=== PATIENT | female | born 1975 | race Caucasian/White ===

== ENCOUNTER 2018-09-30 22:47 | Emergency (ER) | payer MEDICARE, SELFPAY ==
[2018-09-30 22:49] VITALS: BP 133/74; PULSE 81; RESP 18; TEMP 36.6; O2SAT 100; BMI 35.6
--- NOTE | 2018-09-30 23:05 | ED.VISSUMM ---
- ER Visit Summary Date of Service: 09/30/18 Chief Complaint: Left breast pain History of Present Illness: The patient is a 42 F who was sitting and watching wrestling and eating mashed potatoes when she started to experience a sharp stabbing left upper axillary quadrant breast pain. She states she has had similar pains in the past but never this severe. No home treatment. She has had a hysterectomy. She states that she is but later informs me of 3 miscarriages. Moderate caffeine intake. She is a smoker. Physical Examination: Afebrile vital signs stable Gen: Well-nourished well-developed Head: Normocephalic atraumatic Eyes: Perrl EOMI ENT: TMs clear no rhinorrhea moist mucous membranes Neck: Supple no lymphadenopathy no JVD nontender CVS: Regular rate rhythm no murmurs normal S1-S2 Respiratory: No distress clear to auscultation bilaterally chest nontender Left Breast: The nipple appears normal. There are no rashes. The left axillary upper quadrant is tender to palpation. I do not appreciate any masses. No axillary lymph nodes felt. Abdomen: Soft nontender nondistended normal bowel sounds no masses Back: Nontender Extremity: Nontender no edema Skin: Normal color no rash Neuro: alert orientated ?3 CN II-XII intact normal strength sensation reflexes gait cerebellar Psych: Normal affect normal mood Emergency Department Course and Treatment: I recommend to the patient that she use heat and anti-inflammatories. I have advised her to follow-up with her doctor (FARM CONSULTANT) later this week. Impression: Left breast pain This note was generated with [employer] dictation software. It may contain incorrect words, spelling, and punctuation that were not noted in review of the chart prior to signing ED Disposition - Plan for ED Patient: Disposition: Home or Assisted Living Chief Complaint: Other, Pain/Inj Diagnosis: Pain of left breast Additional Instructions: I would recommend applying heat to the breast. Gentle massage Ibuprofen 800 mg 3 times a day. Please call your FARM CONSULTANT in the morning to arrange follow-up for later this week.
--- NOTE | 2018-09-30 23:10 | ED.DCSUM_ITS ---
- ER Visit Summary Date of Service: 09/30/18 Chief Complaint: Left breast pain History of Present Illness: The patient is a 42 F who was sitting and watching wrestling and eating mashed potatoes when she started to experience a sharp stabbing left upper axillary quadrant breast pain. She states she has had similar pains in the past but never this severe. No home treatment. She has had a hysterectomy. She states that she is but later informs me of 3 miscarriages. Moderate caffeine intake. She is a smoker. Physical Examination: Afebrile vital signs stable Gen: Well-nourished well-developed Head: Normocephalic atraumatic Eyes: Perrl EOMI ENT: TMs clear no rhinorrhea moist mucous membranes Neck: Supple no lymphadenopathy no JVD nontender CVS: Regular rate rhythm no murmurs normal S1-S2 Respiratory: No distress clear to auscultation bilaterally chest nontender Left Breast: The nipple appears normal. There are no rashes. The left axillary upper quadrant is tender to palpation. I do not appreciate any masses. No axillary lymph nodes felt. Abdomen: Soft nontender nondistended normal bowel sounds no masses Back: Nontender Extremity: Nontender no edema Skin: Normal color no rash Neuro: alert orientated ?3 CN II-XII intact normal strength sensation reflexes gait cerebellar Psych: Normal affect normal mood Emergency Department Course and Treatment: I recommend to the patient that she use heat and anti-inflammatories. I have advised her to follow-up with her doctor (SPINNING ROOM WORKER) later this week. Impression: Left breast pain This note was generated with [employer] dictation software. It may contain incorrect words, spelling, and punctuation that were not noted in review of the chart prior to signing ED Disposition - Plan for ED Patient: Disposition: Home or Assisted Living Chief Complaint: Other, Pain/Inj Diagnosis: Pain of left breast Additional Instructions: I would recommend applying heat to the breast. Gentle massage Ibuprofen 800 mg 3 times a day. Please call your SPINNING ROOM WORKER in the morning to arrange follow-up for later this week.
[2018-09-30] MEDS: Ibuprofen 400 MG Tablet 800 MG PO (23:16)
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
== END 2018-09-30 23:22 | disposition home or self-care (01) ==
LOC: ED 23:20
PROVIDERS: Emergency Provider Emergency Medicine; Family Provider Family Medicine; PCP Family Medicine
DX: N64.4 Mastodynia (principal); K21.9 Gastro-esophageal reflux disease without esophagitis; F17.200 Nicotine dependence, unspecified, uncomplicated
CPT/HCPCS: 99283

== ENCOUNTER 2018-11-14 23:57 | Emergency (ER) | payer MEDICARE, SELFPAY ==
[2018-11-14 23:58] VITALS: BP 125/75; PULSE 84; RESP 18; TEMP 36.7; O2SAT 98; BMI 33.9
--- NOTE | 2018-11-15 00:20 | RAD_ITS ---
STUDY: X-RAY CHEST REASON FOR EXAM: Female, 42 years old. Cough TECHNIQUE: PA and lateral views of the chest. COMPARISON: None. FINDINGS: The lungs are clear and expanded. There is no demonstrated pleural abnormality. Normal size heart. Normal mediastinum and yulisa. Normal visualized pulmonary arteries. Normal visualized aortic arch and descending thoracic aorta. Normal visualized thoracic spine. Normal visualized ribs, clavicles, and shoulders. There is no demonstrated abnormality of the visualized soft tissue structures of the upper abdomen. RAD/Chest PA and Lateral IMPRESSION: Normal x-ray examination of the chest. Electronically Signed: Renzo Price MD at 1:10 EST Tel , Service support ,
[2018-11-15 00:27] VITALS: PULSE 89; RESP 18
[2018-11-15] MEDS: Albuterol 2.5 MG/3 ML VIAL.NEB. INHALATION (00:27)
--- NOTE | 2018-11-15 00:28 | ED.VISSUMM ---
- ER Visit Summary Date of Service: 11/15/18 Chief Complaint: Cough and hematemesis History of Present Illness: The patient is a 42 F presenting for evaluation secondary to cough and hematemesis. Patient reports over the course of the last 2 days she has had a significant cough. This is relatively nonproductive and has been associated with some rhinorrhea and nasal congestion. She endorses sore throat from coughing so hard. Patient reports that she developed some nausea and vomiting today. She had 2 episodes, and the second of which just prior to arrival had a very small amount of blood in the bucket. She denies any nosebleeds. She denies that she has been having any sort of hemoptysis. Patient is a past smoker, no longer smokes. She denies any unintended weight loss. Review of systems otherwise negative. Physical Examination: Vital signs are within normal limits, patient is afebrile. General: Patient is well-nourished well-developed and in no acute distress. Head: Normocephalic, atraumatic Eyes: Pupils equal round and reactive bilaterally, extra occular motion intact bialterally ENT: Moist mucous membranes, posterior pharyngeal erythema without evidence of posterior fullness asymmetry or exudates Neck: Supple, no lymphadenopathy, no JVD, no meningismus CVS: Heart regular rate and rhythm, no murmurs, rubs or gallops, radial pulses 2+ bilaterally Resp: Respirations nondistressed, lung sounds mild wheezes bilaterally, frequent coughing Abdomen: Soft, nontender, nondistended, no palpable masses, normal bowel sounds Back: Nontender Extremities: Nontender, atraumatic, active full range of motion, no peripheral edema Skin: warm, no rashes, no petechia Neuro: Alert and oriented x 4, CN 2-12 intact, no lateralizing neurological defecits Psyc: Normal affect Test Results: PA and lateral chest x-ray by my personal interpretation is negative Emergency Department Course and Treatment: Patient presented for evaluation secondary to a cough and a single episode of hematemesis. Patient's hematemesis seems more like either swallowed blood that was vomited versus a Eli-Ferrara tear she describes it is a very small amount of blood and she is nontoxic appearing does not have any crepitus of the chest or any stigmata of upper GI bleed or Boerhaave syndrome. I do not believe that further workup is indicated. Patient was given an albuterol breathing treatment had some improvement. At this point I believe she does have bronchitis. Patient will be treated with an inhaler and a short course of prednisone and follow-up with primary care. Disposition: Discharge Impression: 1. Bronchitis This note was generated with [employer] dictation software. It may contain incorrect words, spelling, and punctuation that were not noted in review of the chart prior to signing ED Disposition - Plan for ED Patient: Disposition: Home or Assisted Living Diagnosis: Bronchitis Instructions: ED Bronchitis Asthmatic Prescriptions: Prednisone [Deltasone] 40 mg PO DAILY #8 tab Referrals: Juan Garcia MD [Primary Care Provider] - 3-5 Days if not improving
--- NOTE | 2018-11-15 00:32 | ED.DCSUM_ITS ---
- ER Visit Summary Date of Service: 11/15/18 Chief Complaint: Cough and hematemesis History of Present Illness: The patient is a 42 F presenting for evaluation secondary to cough and hematemesis. Patient reports over the course of the last 2 days she has had a significant cough. This is relatively nonproductive and has been associated with some rhinorrhea and nasal congestion. She endorses sore throat from coughing so hard. Patient reports that she developed some nausea and vomiting today. She had 2 episodes, and the second of which just prior to arrival had a very small amount of blood in the bucket. She denies any nosebleeds. She denies that she has been having any sort of hemoptysis. Shalonda ent is a past smoker, no longer smokes. She denies any unintended weight loss. Review of systems otherwise negative. Physical Examination: Vital signs are within normal limits, patient is afebrile. General: Patient is well-nourished well-developed and in no acute distress. Head: Normocephalic, atraumatic Eyes: Pupils equal round and reactive bilaterally, extra occular motion intact bialterally ENT: Moist mucous membranes, posterior pharyngeal erythema without evidence of posterior fullness asymmetry or exudates Neck: Supple, no lymphadenopathy, no JVD, no meningismus CVS: Heart regular rate and rhythm, no murmurs, rubs or gallops, radial pulses 2+ bilaterally Resp: Respirations nondistressed, lung sounds mild wheezes bilaterally, frequent coughing Abdomen: Soft, nontender, nondistended, no palpable masses, normal bowel sounds Back: Nontender Extremities: Nontender, atraumatic, active full range of motion, no peripheral edema Skin: warm, no rashes, no petechia Neuro: Alert and oriented x 4, CN 2-12 intact, no lateralizing neurological defecits Psyc: Normal affect Test Results: PA and lateral chest x-ray by my personal interpretation is n egative Emergency Department Course and Treatment: Patient presented for evaluation secondary to a cough and a single episode of hematemesis. Patient's hematemesis seems more like either swallowed blood that was vomited versus a Eli-Ferarra tear she describes it is a very small amount of blood and she is nontoxic appearing does not have any crepitus of the chest or any stigmata of upper GI bleed or Boerhaave syndrome. I do not believe that further workup is indicated. Patient was given an albuterol breathing treatment had some improvement. At th is point I believe she does have bronchitis. Patient will be treated with an inhaler and a short course of prednisone and follow-up with primary care. Disposition: Discharge Impression: 1. Bronchitis This note was generated with [employer] dictation software. It may contain incorrect words, spelling, and punctuation that were not noted in review of the chart prior to signing ED Disposition - Plan for ED Patient: Disposition: Home or Assisted Living Diagnosis: Bronchitis Instructions: ED Bronchitis Asthmatic Prescriptions: Prednisone [Deltasone] 40 mg PO DAILY #8 tab Referrals: Juan Garcia MD [Primary Care Provider] - 3-5 Days if not improving
[2018-11-15] MEDS: predniSONE 20 MG Tablet 40 MG PO (01:04)
[2018-11-15 01:06] VITALS: RESP 16
== END 2018-11-15 01:07 | disposition home or self-care (01) ==
PROVIDERS: Emergency Provider Emergency Medicine; Family Provider Family Medicine; PCP Family Medicine
DX: J40 Bronchitis, not specified as acute or chronic (principal); Z87.891 Personal history of nicotine dependence
CPT/HCPCS: 71046; 94640; 99283

== ENCOUNTER → 2019-01-01 09:03 | Outpatient (CLI) | payer MEDICARE, SELFPAY ==
[2019-01-01 09:43] LABS: Absolute Lymphocyte Count 2.15 X10^3/ul (0.83-4.51); Absolute Neutrophil Count 4.3 X10^3/uL (2.0-7.7); Basophil# 0.08 X10^3/uL; Basophil% 1.1 % (0-1); Eosinophil# 0.25 X10^3/uL; Eosinophils% 3.4 % (0-5); Hematocrit 42.3 % (37-47); Hemoglobin 14.6 g/dl (12.0-15.0); Lymphocyte # 2.15 X10^3/ul (4.0); Mean Corp Hgb Conc 34.5 g/gl (32-36); Mean Corpuscular Hgb 30.1 pg (27.0-32.0); Mean Corpuscular Volume 87.2 fL (81-99); Mean Platelet Vol. 11.1 fl (6.2-12.0); Monocyte# 0.64 X10^3/uL; Monocyte% 8.6 % (0-10); Neutrophil # 4.27 X10^3/uL (2.7-7.7); Neutrophil % 57.6 % (47-70); Platelet Count 208 K/mm3 (150-450); RBC Distribution Width CV 12.5 % (11.6-14.6); RBC Distribution Width SD 38.8 fl (35.1-43.9); Red Blood Count 4.85 M/mm3 (4.2-5.4); White Blood Count 7.4 K/mm3 (4.4-11.0)
[2019-01-01 09:45] LABS: POSITIVE COUNT NO; POSITIVE DIFFERENTIAL NO; POSITIVE MORPHOLOGY NO
[2019-01-01 10:13] LABS: ALB/GLOB Ratio 1.1 RATIO (0.9-2.4); AST(SGOT) 81 U/L (15-37); Alanine Aminotransfer ALT/SGPT 135 U/L (13-56); Alkaline Phosphatase 69 U/L (45-117); Anion Gap 7 (5-15); BUN 13 mg/dL (7-18); BUN/Creat Ratio 15.9 RATIO (10-20); Calcium,Total 8.4 mg/dL (8.5-10.1); Chloride 107 mmol/L (98-107); Cholesterol 145 mg/dL (200); Creatinine, Serum 0.82 mg/dL (0.55-1.02); EST Glomerular Filtration Rate 82 mL/min (>60); Est Glom Filt Rate - Afr Amer 99 mL/min (>60); Globulin 3.6 g/dL (2.2-4.2); Glucose 113 mg/dL (74-106); High Density Lipoprotein 30 mg/dL; Potassium 3.9 mmol/L (3.5-5.1); Protein, Total 7.6 g/dL (6.4-8.2); Sodium Level 139 mmol/L (136-145); T4 Total, Thyroxin 10.8 ug/dL (4.8-13.9); Thyroid Stim Hormone (TSH) 2.04 uIU/mL (0.358-3.74); Triglycerides 173 mg/dL; Very Low Density Lipoprotein 35 mg/dL (5-40)
[2019-01-01 10:55] LABS: T3 Total - Triiodothyronine 1.39 ng/mL (0.6-1.81)
== END ==
PROVIDERS: Family Provider Family Medicine; PCP Family Medicine
DX: F43.10 Post-traumatic stress disorder, unspecified (principal); Z79.899 Other long term (current) drug therapy
CPT/HCPCS: 36415; 80053; 80061; 83036; 84436; 84443; 84480; 85025

== ENCOUNTER 2019-08-30 19:18 | Emergency (ER) | payer MEDICARE, MEDICAID, SELFPAY ==
[2019-08-30 19:19] VITALS: BP 112/65; PULSE 79; RESP 18; TEMP 36.8; O2SAT 97; BMI 32.9
--- NOTE | 2019-08-30 19:38 | ED.VIS.FEGU ---
History of Present Illness Chief Complaint: Vag Bleeding Informant: Patient Pain: Pelvic Pain Onset: Today Context: Gradual Onset Timing: Continuous Quality: Cramping Location: Suprapubic Current Severity: Mild Maximum Severity: Mild Issue: Vaginal bleeding Onset: Hours - 2 Context: Sudden Onset Timing: Intermittent Current Severity: Mild Maximum Severity: Mild Associated Symptoms: Negative for: Dysuria, Frequency, Urgency, Hematuria Narrative: Patient states she had a partial hysterectomy 5 years ago, continues to get Pap smears from her doctor, and started bleeding for the first time in 5 years on her vagina couple hours ago without any obvious reason. She denies any systemic symptoms although she is having very mild pelvic discomfort in the midline. No other discharge other than the mild bleeding. [facility] has not [facility] for the last 5 years. Past Medical History - Allergies and Home Meds Allergies/Adverse Reactions: Allergies Penicillins Allergy (Verified 11/15/18 00:01) Rash bee venom protein (honey bee) Adverse Reaction (Verified 11/15/18 00:01) Anaphylaxis Primary Care Physician: Juan Garcia MD [Primary Care Provider] - Surgical History: hysterectomy Lives: Spouse/ Significant Other Smoking Status: Former smoker Drugs: None Review of Systems General: Denies: Chills, Fever, Malaise, Sweats Cardiovascular: Denies: Chest pain, Palpitations Respiratory: Denies: Dyspnea, Cough, Dyspnea on exertion Gastrointestinal: Reports: Abdominal pain. Denies: Nausea, Vomiting, Diarrhea, Melena, Hematochezia Genitourinary: Reports: - - vaginal bleeding. see HPI.. Denies: Dysuria, Hematuria, Frequency Musculoskeletal: Denies: Neck pain, Back pain, Swelling, Extremity Pain Skin: Denies: Rash, Wounds Neurological: Denies: Headache, Weakness, Numbness Physical Exam Vital Signs/Narrative: Vital Signs Temp Pulse Resp BP Pulse Ox 08/30/19 19:19 98.2 F 79 18 112/65 97 Inital Vital Signs reviewed: Yes General: Well nourished, Well developed, - - Well-appearing, no acute distress. Head: Normocephalic, Atraumatic Abdomen: Soft, Nontender, Nondistended, Normal bowel sounds : Speculum exam: Normal external genitalia, No vaginal lesions, No vaginal discharge, Normal cervix, Old blood - emanating from cervical os; no active bleeding after swabbed old blood away, - - No foreign bodies. No evidence for a vaginal laceration. No bright red blood; all of the old blood is very dark, almost brown in appearance, and fairly homogenous. There is a fairly small amount of old blood. Bimanual exam: No cervical motion tenderness, Os closed Back: Nontender. Negative for: CVA tenderness Skin: Normal color, No rash, No Trauma Neurological: Alert, Oriented x3, Cranial nerves II-XII grossly intact, Normal Strength, Normal Sensation, Normal Gait Psychological: Normal affect, Normal Mood Diagnostic/Tx/Re-eval - Medical Decision/Diagnostic Studies Discussed with Dr. Carmita Glover. She agrees with patient following up as an outpatient, and based on my exam agrees that the patient does not need an emergent ultrasound at this time but it is certainly possible that the patient had a supracervical partial hysterectomy, in which case the cervix would be left behind but she should not be bleeding. An outpatient ultrasound would be reasonable and she can follow-up in 2 days in the office, the patient was advised of this and call. ED Disposition - Plan for ED Patient: Disposition: Home or Assisted Living Diagnosis: Abnormal vaginal bleeding Instructions: Dysfunctional Uterine Bleeding Referrals: Juan Garcia MD [Primary Care Provider] - Ruiz Glover [STAFF PHYSICIAN] - (or any of the [facility] -- call sunday AM for appt) Additional Instructions: If your bleeding becomes very heavy, more than 1 pad per hour for multiple hours, or you feel like you are going to pass out a very weak, return to the ER.
[2019-08-30 19:58] VITALS: RESP 18
== END 2019-08-30 20:09 | disposition home or self-care (01) ==
PROVIDERS: Emergency Provider Emergency Medicine; Family Provider Family Medicine; PCP Family Medicine
DX: N93.9 Abnormal uterine and vaginal bleeding, unspecified (principal); Z90.710 Acquired absence of both cervix and uterus; Z87.891 Personal history of nicotine dependence
CPT/HCPCS: 99282

== ENCOUNTER 2020-11-13 18:34 | Emergency (ER) | payer OTHER, MEDICARE, MEDICAID, SELFPAY ==
[2020-11-13 18:34] VITALS: BP 147/86; PULSE 91; RESP 18; TEMP 36.5; O2SAT 99; BMI 36.7
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
[2020-11-13 19:16] LABS: Bacteria 0 SEEN /hpf (None Seen); Mucous, Urine 0 SEEN /hpf (<or=2+)
[2020-11-13 19:21] VITALS: PULSE 79; RESP 18; O2SAT 100
[2020-11-13] MEDS: Ondansetron 4 MG/2 ML Vial IV (19:22)
[2020-11-13] MEDS: fentaNYL 100 MCG/2 ML Ampul 50 MCG IV (19:23)
[2020-11-13 19:57] LABS: Absolute Lymphocyte Count 1.55 X10^3/uL (0.83-4.51); Absolute Neutrophil Count 4.6 X10^3/uL (2.0-7.7); Basophil# 0.05 X10^3/uL; Basophil% 0.7 % (0-1); Eosinophils% 1.5 % (0-5); Hematocrit 43.4 % (37-47); Hemoglobin 14.7 g/dL (12.0-15.0); Lymphocyte # 1.55 X10^3/ul (4.0); Lymphocyte % 22.7 % (19-41); Mean Corp Hgb Conc 33.9 g/dL (32-36); Mean Corpuscular Hgb 30.6 pg (27.0-32.0); Mean Corpuscular Volume 90.2 fL (81-99); Mean Platelet Vol. 11.1 fl (6.2-12.0); Monocyte# 0.47 X10^3/uL; Monocyte% 6.9 % (0-10); NRBC Flagged by Analyzer 0 % (0-5); Neutrophil # 4.62 X10^3/uL (2.7-7.7); Neutrophil % 67.6 % (47-70); Platelet Count 235 K/mm3 (150-450); RBC Distribution Width CV 11.8 % (11.6-14.6); RBC Distribution Width SD 38.7 fl (35.1-43.9); Red Blood Count 4.81 M/mm3 (4.2-5.4); White Blood Count 6.8 K/mm3 (4.4-11.0)
[2020-11-13 19:59] LABS: Color, Urine Yellow (Yellow); Glucose, Dipstick Normal (Normal); Ketone-Dipstick Negative (Negative); Leukocyte Esterase-Dipstick 25 /ul (Negative); Nitrite-Dipstick Negative (Negative); Occult Blood-Urine 150 /ul (Negative); Protein-Dipstick 30 mg/dl (Negative); Specific Gravity, Urine 1.025 (1.002-1.030); Urine Bilirubin Dipstick Negative (Negative); Urine Clarity Sl. Cloudy (Clear); Urine Urobilinogen 1 mg/dl (Normal)
[2020-11-13 20:01] LABS: Prothrombin Time (Protime)PT. 12.8 SECONDS (11.7-14.9)
[2020-11-13 20:12] LABS: Alcohol, Blood (Medical)-Serum < 3.0 mg/dL; Anion Gap 6 (5-15); BUN 16 mg/dL (7-18); BUN/Creat Ratio 16.3 RATIO (10-20); Calcium,Total 9.3 mg/dL (8.5-10.1); Chloride 105 mmol/L (98-107); Creatinine, Serum 0.98 mg/dL (0.55-1.02); EST Glomerular Filtration Rate 66 mL/min (>60); Est Glom Filt Rate - Afr Amer 79 mL/min (>60); Estimated Creatinine Clearance 53.72 ml/min; Glucose 109 mg/dL (74-106); Sodium Level 138 mmol/L (136-145)
[2020-11-13 20:22] LABS: Hyaline Cast 0-5 SEEN /lpf (0-5); Red Blood Cells-Urine 10-25 SEEN /hpf (0-5); Squamous Epithelial Cells - UA 0-5 SEEN /hpf (5-10); White Blood Cells 0-5 SEEN /hpf (0-5)
[2020-11-13 20:23] LABS: Amorphous Sediment 1+ URATE
[2020-11-13 21:39] VITALS: PULSE 84; RESP 16; O2SAT 97
== END 2020-11-13 21:39 | disposition home or self-care (01) ==
PROVIDERS: Emergency Provider Student in an Organized Health Care Education/Training Program
DX: S20.219A Contusion of unspecified front wall of thorax, initial encounter (principal); S32.019A Unspecified fracture of first lumbar vertebra, initial encounter for closed fracture; S32.029A Unspecified fracture of second lumbar vertebra, initial encounter for closed fracture; J45.909 Unspecified asthma, uncomplicated; K21.9 Gastro-esophageal reflux disease without esophagitis; Z87.891 Personal history of nicotine dependence; Z90.710 Acquired absence of both cervix and uterus; V89.2XXA Person injured in unspecified motor-vehicle accident, traffic, initial encounter
CPT/HCPCS: 70450; 71260; 74177; 80048; 81001; 82077; 85025; 85610; 93005; 96374; 96375; 99285; Q9967; A4216; J2405

== ENCOUNTER 2020-12-08 23:12 | Emergency (ER) | payer MEDICARE, MEDICAID, SELFPAY ==
[2020-12-08 23:12] VITALS: BP 151/86; PULSE 79; RESP 16; TEMP 36.2; O2SAT 97; BMI 37.0
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
[2020-12-08 23:31] VITALS: BP 151/86; PULSE 79; RESP 16; TEMP 36.2; O2SAT 97
[2020-12-08] MEDS: HYDROcodone Bitartrate/Apap 5/325 Tablet PO (23:39)
[2020-12-08 23:51] LABS: Bacteria 0 SEEN /hpf (None Seen); Mucous, Urine 0 SEEN /hpf (<or=2+); White Blood Cells 0 SEEN /hpf (0-5)
[2020-12-08 23:52] LABS: Color, Urine Yellow (Yellow); Glucose, Dipstick Normal (Normal); Ketone-Dipstick 5 mg/dl (Negative); Leukocyte Esterase-Dipstick Negative /ul (Negative); Nitrite-Dipstick Negative (Negative); Occult Blood-Urine 10 /ul (Negative); Protein-Dipstick Negative (Negative); Urine Bilirubin Dipstick Negative (Negative); Urine Clarity Clear (Clear); Urine Urobilinogen 4 mg/dl (Normal)
[2020-12-08 23:58] LABS: Red Blood Cells-Urine 0-5 SEEN /hpf (0-5); Squamous Epithelial Cells - UA 5-10 SEEN /hpf (5-10)
== END 2020-12-09 00:18 | disposition home or self-care (01) ==
LOC: ED 12-09 00:12
PROVIDERS: Emergency Provider Emergency Medicine
DX: M54.16 Radiculopathy, lumbar region (principal); Z90.710 Acquired absence of both cervix and uterus; Z87.891 Personal history of nicotine dependence
CPT/HCPCS: 81001; 99283

== ENCOUNTER 2021-05-01 11:25 | Emergency (ER) | payer MEDICARE, MEDICAID, SELFPAY ==
[2021-05-01 11:26] VITALS: BP 140/81; PULSE 76; RESP 18; TEMP 35.7; O2SAT 99; BMI 37.2
--- NOTE | 2021-05-01 12:22 | EKG12_ITS ---
Test Reason : CP Blood Pressure : / mmHG Vent. Rate : 071 BPM Atrial Rate : 071 BPM P-R Int : 144 ms QRS Dur : 086 ms QT Int : 402 ms P-R-T Axes : 000 149 127 degrees QTc Int : 436 ms Suspect arm lead reversal, interpretation assumes no reversal Normal sinus rhythm Lateral infarct , age undetermined Abnormal ECG Confirmed by SUDEEP MCCONNELL, MARIA LUISA ([id number]), commissioning editor RICARDO LISA ([id number]) on 05/02/2021 11:48:23 AM Referred By: GALDINO/CHERYL Confirmed By:MARIA LUISA SHEETS MD
--- NOTE | 2021-05-01 12:23 | RAD_ITS ---
HISTORY: chest pain. TECHNIQUE: XR Chest 2 Views. # of images incl. paperwork: 2. COMPARISON: 11/15/2018. FINDINGS: CARDIOMEDIASTINAL STRUCTURES: Cardiac silhouette not enlarged. Mediastinal contour unremarkable. LUNGS: Radiographically clear. Low lung volumes. PLEURA: No pleural effusion or pneumothorax. OSSEOUS STRUCTURES: Unremarkable. RAD/Chest PA and Lateral IMPRESSION: No radiographic evidence of acute cardiopulmonary disease. at 1313 Reported and signed by: Hodan Gates MD Electronically Signed: Hodan Gates MD at 13:12 EDT Tel , Service support ,
[2021-05-01] MEDS: Aspirin 81 MG TAB.CHEW 324 MG PO (12:28)
[2021-05-01 12:33] VITALS: PULSE 65; RESP 18; O2SAT 96
--- NOTE | 2021-05-01 12:36 | EDS_ITS ---
HPI History of Present Illness Chief Complaint: Chest Pain Informant: patient Narrative Narrative: Patient is a 45-year-old female with history of asthma, seasonal allergies and acid reflux presenting with chest pain. She states it is on her left chest. She had an episode yesterday afternoon after she had cotton candy flavored soda. She states it felt like she was coming down from a sugar high. She describes it as a discomfort associated with her heart racing. Her symptoms were better this morning however when she was at [employer] they returned around 11 AM. Is been going on since. Patient states she has similar episode in the past and actually had a stress test 2 or 3 weeks ago by her cable supervisor in [place] which she says was normal. She is scheduled to have an echocardiogram tomorrow morning. She states this feels like her prior episodes. She notes her symptoms are worse when she exerts herself. She denies any cough, fever or chills. No GI or symptoms. No other complaints at this time. [facility] Medical History (Updated 05/01/21 @ 17:[address] Anna Valdivia, ) Asthma delivery delivered Home Medications omeprazole 40 mg PO DAILY 06/04/17 [History Last Taken Unknown] albuterol sulfate [Ventolin Hfa (SP)] 1 - 2 puff INHALATION Q4H PRN PRN 09/13/17 [History Last Taken Unknown] epinephrine 0.3 mg SUBCUT X1 PRN 09/30/18 [History Last Taken Unknown] Allergy/AdvReac Type Severity Reaction Status Date / Time Penicillins Allergy Rash Verified 05/01/21 11:28 bee venom protein (honey bee) AdvReac Anaphylaxis Verified 05/01/21 11:28 Social History Smoking Status: Former smoker ROS ROS ED Constitutional Constitutional ED: Denies fatigue or weakness Eyes Eyes: Denies blurry vision Cardiovascular Cardiovascular: Reports chest pain and palpitations Respiratory/Chest Respiratory/Chest: Denies cough Gastrointestinal Gastrointestinal: Denies abdominal pain, nausea or vomiting Genitourinary Genitourinary ED: Denies decreased urination or dysuria Musculoskeletal Musculoskeletal: Denies extremity pain Integumentary Denies new lesions or rash Neurologic Neurologic: Denies paresthesias or weakness Psychiatric Psychiatric: Denies anxiety or depression Hematologic/Lymphatic Hematologic/Lymphatic: Denies easy bleeding or easy bruising EXAM Physical Exam Const Vital Signs: 05/01/21 11:26 05/01/21 12:29 05/01/21 12:33 Temperature 96.3 F L Temperature Source Temporal Pulse Rate 76 65 Respiratory Rate 18 18 Blood Pressure 140/81 H Blood Pressure Mean 100 Pulse Ox 99 96 Oxygen Delivery Method Room Air Room Air Room Air 05/01/21 14:24 05/01/21 15:00 05/01/21 17:16 Temperature Temperature Source Pulse Rate 62 60 81 Respiratory Rate 20 H 15 16 Blood Pressure 120/74 120/74 Blood Pressure Mean 89 89 Pulse Ox 99 99 99 Oxygen Delivery Method Room Air Room Air Positive well nourished and well developed General Appearance ED: well developed HEENT Reports moist mucous membranes normocephalic Mouth ED: Yes moist mucous membranes normal Eyes PERRL and EOMs intact bilaterally General Eye ED: Yes normal appearance of both eyes Pupil: PERRL Neck supple and no JVD Lymph Lymphatic: no lymphadenopathy noted Chest Wall inspection of chest normal and palpation of chest normal Resp normal respiratory effort, normal air movement and clear to auscultation bilaterally Effort and Inspection: Negative for respiratory distress Cardio regular rate and regular rhythm Peripheral Pulses: pulses 2+ throughout GI non-tender and non-distended Back/Spine no CVA tenderness and normal to inspection Extremity normal to inspection and full ROM Neuro oriented x3, moves all extremities and no focal motor deficits Sensorium / Orientation: awake Psych mental status grossly normal and thought process normal Skin no rashes or lesions noted and no petechiae Heart Score History: Slightly/Non-Suspicious ECG: Nonspecific Repolarization Age: </= 45 years Risk Factors: 1 or 2 Risk Factors Troponin: </= Normal Limit Score: 2 MDM MDM MDM Narrative Medical decision making narrative: Patient evaluated for chest pain. She has been having this ongoing chest pain for some time and it came back today. Patient actually recently had a stress test for this which she states was normal and is scheduled have an echocardiogram tomorrow. She is hemodynamically stable. EKG does not show any acute changes. High-sensitivity troponin x2 is normal. Patient is PE RC negative I do not suspect PE at this time. She does not appear to be fluid overloaded. Exact cause her pain is not clear however she does not have any arrhythmia in the ER and I think she stable for outpatient follow-up. Lab Data Attestation: I reviewed the patient's lab results. Labs: Laboratory Results - last 24 hr 05/01/21 05/01/21 05/01/21 11:40 11:40 11:40 WBC 6.7 RBC 4.75 Hgb 14.1 Hct 40.5 MCV 85.3 MCH 29.7 MCHC 34.8 RDW Std Deviation 38.2 RDW Coeff of Dontae 12.3 Plt Count 212 MPV 11.3 Immature Gran % (Auto) 0.300 Neut % (Auto) 59.7 Lymph % (Auto) 29.2 [place] % (Auto) 7.1 Eos % (Auto) 2.9 Baso % (Auto) 0.8 Absolute Neuts (auto) 4.0 Absolute Lymphs (auto) 1.94 Nucleated RBC % 0 Sodium 140 Potassium 3.3 L Chloride 106 Carbon Dioxide 27.0 Anion Gap 7 BUN 13 Creatinine 0.84 Estim Creat Clear Calc 62.03 Est GFR (MDRD) Af Amer 95 Est GFR (MDRD) Non-Af 78 BUN/Creatinine Ratio 15.5 Glucose 112 H Calcium 9.4 Troponin I High Sens < 3.0 L B-Natriuretic Peptide 14.0 TSH 2.47 05/01/21 14:25 WBC RBC Hgb Hct MCV MCH MCHC RDW Std Deviation RDW Coeff of Dontae Plt Count MPV Immature Gran % (Auto) Neut % (Auto) Lymph % (Auto) [place] % (Auto) Eos % (Auto) Baso % (Auto) Absolute Neuts (auto) Absolute Lymphs (auto) Nucleated RBC % Sodium Potassium Chloride Carbon Dioxide Anion Gap BUN Creatinine Estim Creat Clear Calc Est GFR (MDRD) Af Amer Est GFR (MDRD) Non-Af BUN/Creatinine Ratio Glucose Calcium Troponin I High Sens 3.1 B-Natriuretic Peptide TSH Radiography Chest X-Ray - ED: 1 View, Read by ED Physician, Read by Radiologist and No Acute Disease Diagnostic Testing: Radiology Impression Chest X-Ray 05/01/21 12:23 IMPRESSION: No radiographic evidence of acute cardiopulmonary disease. at 1313 Reported and signed by: Hodan Gates MD Electronically Signed: Hodan Gates MD at 13:12 EDT Tel , Service support , Rhythm Strip Rhythm Strip: Sinus Rhythm Rate: 71 Ectopy: None EKG Initial EKG: Attestation: I personally reviewed and interpreted this EKG as follows: Interpretation: Sinus Rhythm Comments: Normal sinus rhythm rate of 71 Normal axis Normal intervals Normal ST segments T wave inversions in 1 and aVL with limb lead reversal No significant change compared to prior EKG on 11/13/2020 however patient does have a new T wave inversion lead I Discharge Plan Triage Chief Complaint: Chest Pain ED Provider: Anna Valdivia Dx/Rx/DC Orders Clinical Impression: Chest pain of unknown etiology Instructions: ED Chest Pain, Uncertain Cause Prescriptions: No Action omeprazole 40 MG capsule,delayed release(DR/EC) 40 mg PO DAILY RF: 0 albuterol sulfate [Ventolin HFA] 1 INHALER inhaler 1 - 2 puff inhalation Q4H PRN PRN (Reason: Asthma) RF: 0 epinephrine 0.3 MG syringe 0.3 mg subcut X1 PRN (Reason: allergy) RF: 0 Primary Care Provider: [facility] ,Out of Referrals: [facility] Doctor,Out of [Primary Care Provider] - Disposition Disposition: Home, Self Care Discharge Date/Time: 05/01/21 17:17
[2021-05-01 12:48] LABS: Absolute Lymphocyte Count 1.94 X10^3/uL (0.83-4.51); Basophil# 0.05 X10^3/uL; Basophil% 0.8 % (0-1); Eosinophil# 0.19 X10^3/uL; Eosinophils% 2.9 % (0-5); Hematocrit 40.5 % (37-47); Hemoglobin 14.1 g/dL (12.0-15.0); Lymphocyte # 1.94 X10^3/ul (0.83-4.51); Lymphocyte % 29.2 % (19-41); Mean Corp Hgb Conc 34.8 g/dL (32-36); Mean Corpuscular Hgb 29.7 pg (27.0-32.0); Mean Corpuscular Volume 85.3 fL (81-99); Mean Platelet Vol. 11.3 fl (6.2-12.0); Monocyte# 0.47 X10^3/uL; Monocyte% 7.1 % (0-10); NRBC Flagged by Analyzer 0 % (0-5); Neutrophil # 3.98 X10^3/uL (2.7-7.7); Neutrophil % 59.7 % (47-70); Platelet Count 212 K/mm3 (150-450); RBC Distribution Width CV 12.3 % (11.6-14.6); RBC Distribution Width SD 38.2 fl (35.1-43.9); Red Blood Count 4.75 M/mm3 (4.2-5.4); White Blood Count 6.7 K/mm3 (4.4-11.0)
[2021-05-01 12:49] LABS: Anion Gap 7 (5-15); BUN 13 mg/dL (7-18); BUN/Creat Ratio 15.5 RATIO (10-20); Calcium,Total 9.4 mg/dL (8.5-10.1); Chloride 106 mmol/L (98-107); Creatinine, Serum 0.84 mg/dL (0.55-1.02); EST Glomerular Filtration Rate 78 mL/min (>60); Est Glom Filt Rate - Afr Amer 95 mL/min (>60); Estimated Creatinine Clearance 62.03 ml/min; Glucose 112 mg/dL (74-106); Potassium 3.3 mmol/L (3.5-5.1); Sodium Level 140 mmol/L (136-145); Thyroid Stim Hormone (TSH) 2.47 uIU/mL (0.358-3.74); Troponin-I HS < 3.0 pg/mL (3.0-53.7)
[2021-05-01 14:24] VITALS: BP 120/74; PULSE 62; RESP 20; O2SAT 99
[2021-05-01 14:50] LABS: Troponin-I HS 3.1 pg/mL (3.0-53.7)
[2021-05-01 15:00] VITALS: BP 120/74; PULSE 60; RESP 15; O2SAT 99
[2021-05-01 17:16] VITALS: PULSE 81; RESP 16; O2SAT 99
== END 2021-05-01 17:17 | disposition home or self-care (01) ==
PROVIDERS: Emergency Provider Emergency Medicine
DX: R07.9 Chest pain, unspecified (principal); J45.909 Unspecified asthma, uncomplicated; K21.9 Gastro-esophageal reflux disease without esophagitis; Z87.891 Personal history of nicotine dependence; Z79.899 Other long term (current) drug therapy
CPT/HCPCS: 71046; 80048; 83880; 84443; 84484; 85025; 93005; 99284

== ENCOUNTER 2021-11-02 16:17 | Outpatient (CLI) | payer MEDICARE, MEDICAID, SELFPAY ==
--- NOTE | 2021-11-02 16:24 | MRI_ITS ---
STUDY: MRI BRAIN WITH AND WITHOUT CONTRAST (ATTENTION INTERNAL AUDITORY CANALS - I.A.C.''s) REASON FOR EXAM: Female, 45 years old. HEARING LOSS- BILATERAL, rt ear pressure TECHNIQUE: Standardized multiplanar fat and water weighted pulse sequences were obtained. IV 17ml Dotarem was administered for the contrast portion of the examination. COMPARISON: 03/07/2017 FINDINGS: Normal bilateral temporal bones. Normal bilateral internal auditory canals. There is no demonstrated intracanalicular or cisternal vestibular schwannoma (acoustic neuroma). There is no enhancement of the bilateral VIIth or VIIIth cranial nerves. Normal bilateral cochlea, vestibules and semicircular canals. Normal size of the ventricles and extra-axial spaces for the patient''s age. Normal white matter tracts of the supratentorial brain. Normal bilateral basal ganglia. Normal thalami. Normal flow voids within the major intracranial circulation suggesting patency by spin echo criteria. Normal venous enhancement. There is no enhancing intra-axial or extra-axial abnormality. There is no extra-axial fluid accumulation. Normal sella turcica, pituitary gland, infundibular stalk, optic chiasm and hypothalamus. Normal tectal plate and pineal gland. Normal midbrain, sari and medulla. Normal cerebellum. Normal basal cisterns. MRI/Brain W/WO Contrast IMPRESSION: There is no demonstrated vestibular schwannoma (acoustic neuroma). Electronically Signed: Mae Maza MD at 15:59 EST Tel , Service support ,
== END 2021-11-02 23:59 | disposition short-term general hospital (02) ==
LOC: MRI 16:19
PROVIDERS: Visit Provider Otolaryngology Otolaryngology/Facial Plastic Surgery
DX: H90.3 Sensorineural hearing loss, bilateral (principal)
CPT/HCPCS: 70553; A9575

== ENCOUNTER 2022-01-22 15:06 | Emergency (ER) | payer MEDICARE, MEDICAID, SELFPAY ==
[2022-01-22 15:07] VITALS: BP 129/79; PULSE 65; RESP 16; TEMP 36.1; O2SAT 99; BMI 38.2
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
[2022-01-22] MEDS: Ondansetron 4 MG/2 ML Vial IV (15:40)
[2022-01-22] MEDS: Morphine 4 MG/ML Syringe IV (15:40)
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
[2022-01-22 16:27] VITALS: BP 115/79; PULSE 71; RESP 15; O2SAT 98
[2022-01-22 18:37] VITALS: PULSE 72; RESP 15; O2SAT 98
== END 2022-01-22 18:39 | disposition home or self-care (01) ==
PROVIDERS: Emergency Provider Emergency Medicine; PCP Family Medicine; Visit Provider Emergency Medicine
DX: S39.012A Strain of muscle, fascia and tendon of lower back, initial encounter (principal); J45.909 Unspecified asthma, uncomplicated; Z87.891 Personal history of nicotine dependence; Z79.82 Long term (current) use of aspirin; Z79.899 Other long term (current) drug therapy; V89.0XXA Person injured in unspecified motor-vehicle accident, nontraffic, initial encounter
CPT/HCPCS: 72100; 74177; 96374; 96375; 99282; Q9967; A4216; J2405

== ENCOUNTER 2022-06-18 14:45 | Emergency (ER) | payer MEDICARE, MEDICAID, SELFPAY ==
[2022-06-18 14:46] VITALS: BP 118/77; PULSE 84; RESP 18; TEMP 36.4; O2SAT 97; BMI 37.2
--- NOTE | 2022-06-18 15:17 | EKG12_ITS ---
Test Reason : CHEST PAIN Blood Pressure : / mmHG Vent. Rate : 079 BPM Atrial Rate : 079 BPM P-R Int : 160 ms QRS Dur : 078 ms QT Int : 388 ms P-R-T Axes : 057 033 046 degrees QTc Int : 444 ms Normal sinus rhythm Possible Inferior infarct , age undetermined Cannot rule out Anterior infarct , age undetermined Abnormal ECG Confirmed by MARIO MCCONNELL, SUSSY ([id number]), commissioning editor RICARDO LISA ([id number]) on 06/20/2022 9:21:47 AM Referred By: DC Confirmed By:KRISTIE MARTIN MD
--- NOTE | 2022-06-18 15:18 | ED.VIS.CHEST ---
HPI History of Present Illness Chief Complaint: Chest Pain Informant: patient Onset/Context/Timing Onset: Today Activity at onset: light activity Timing: Continuous Quality: Positive for Pressure Location: Substernal Current Severity: Mild Maximum Severity: Mild Narrative Narrative: Patient present secondary to chest pain. She states about an hour prior to arrival she was organizing her jewelry when she noted a pressure sensation in her substernal area that radiates to her left shoulder. She reports mild shortness of breath. She does have a history of asthma and has recently been on 2 courses of antibiotics as well as a course of prednisone. She denies having fever or chills. Minimal cough. She was tested for COVID recently at her doctor's office. [facility] Medical History Asthma delivery delivered Home Medications omeprazole 40 mg capsule,delayed release 40 mg PO DAILY 06/04/17 [History Last Taken Unknown] albuterol sulfate 90 mcg/actuation aerosol inhaler (Ventolin HFA) 1 - 2 puff inhalation Q4H PRN PRN Asthma 09/13/17 [History Last Taken Unknown] epinephrine 0.3 mg/0.3 mL injection, auto-injector 0.3 mg subcut X1 PRN allergy 09/30/18 [History Last Taken Unknown] aspirin 81 mg tablet,delayed release 81 mg PO DAILY 01/22/22 [History Last Taken Unknown] cetirizine 5 mg tablet 5 mg PO DAILY 01/22/22 [History Last Taken Unknown] metoprolol succinate 25 mg tablet,extended release 24 hr 25 mg PO QHS 01/22/22 [History Last Taken Unknown] clindamycin HCl 300 mg capsule 300 mg PO TID 06/18/22 [History Last Taken Unknown] doxycycline hyclate 100 mg tablet 100 mg PO BID 06/18/22 [History Last Taken Unknown] potassium chloride 20 mEq tablet,extended release 20 meq PO BID #8 tabs 06/18/22 [Rx Last Taken Unknown] Allergy/AdvReac Type Severity Reaction Status Date / Time Penicillins Allergy Rash Verified 06/18/22 14:48 bee venom protein (honey bee) AdvReac Anaphylaxis Verified 06/18/22 14:48 Social History Smoking Status: Former smoker ROS ROS ED Constitutional Constitutional ED: Denies chills or fever(s) Eyes Eyes: Denies change in vision or discharge from eye(s) ENT ENT ED: Denies discharge from eye(s), rhinorrhea or sore throat Cardiovascular Cardiovascular: Reports chest pain; Denies palpitations or racing heartbeat Respiratory/Chest Respiratory/Chest: Reports cough and dyspnea Gastrointestinal Gastrointestinal: Denies abdominal pain, diarrhea, nausea or vomiting Genitourinary Genitourinary ED: Denies dysuria Musculoskeletal Musculoskeletal: Denies back pain or extremity pain Integumentary Denies Abrasions or rash Neurologic Neurologic: Denies headache(s) or weakness Allergic/Immunologic Allergic/Immunologic ED: Denies lip swelling or urticaria EXAM Physical Exam Const Vital Signs: 06/18/22 14:46 06/18/22 14:52 06/18/22 15:31 Temperature 97.6 F L Temperature Source Temporal Pulse Rate 84 Respiratory Rate 18 Respiratory Effort Short of Breath Blood Pressure 118/77 Blood Pressure Mean 90 Pulse Ox 97 96 Oxygen Delivery Method Room Air Room Air 06/18/22 16:15 06/18/22 17:02 Temperature Temperature Source Pulse Rate 69 65 Respiratory Rate 16 20 H Respiratory Effort Blood Pressure 113/81 H 107/75 Blood Pressure Mean 91 85 Pulse Ox 96 96 Oxygen Delivery Method Room Air Room Air Positive well nourished and well developed General Appearance ED: well developed HEENT Reports normocephalic and head/scalp atraumatic Eyes PERRL and EOMs intact bilaterally Neck supple Chest Wall inspection of chest normal Chest Narrative: Mild anterior chest wall tenderness with palpation. No crepitus. Resp normal respiratory effort and clear to auscultation bilaterally Cardio regular rate and regular rhythm GI normal to inspection, nondistended, normoactive bowel sounds Palpation: soft Extremity normal to inspection Neuro oriented x3 and no sensory deficits noted Sensorium / Orientation: alert Motor Exam: strength 5/5 throughout Psych mental status grossly normal Skin no rashes or lesions noted Heart Score History: Slightly/Non-Suspicious ECG: Normal Age: </= 45 years Risk Factors: No Risk Factors Troponin: </= Normal Limit Score: 0 MDM MDM MDM Narrative Medical decision making narrative: Patient was given Toradol for pain. Lab work, EKG, chest x-ray obtained. Lab Data Attestation: I reviewed the patient's lab results. Labs: Laboratory Results - last 24 hr 06/18/22 06/18/22 06/18/22 15:00 15:00 15:00 WBC 7.5 RBC 4.74 Hgb 14.1 Hct 40.8 MCV 86.1 MCH 29.7 MCHC 34.6 RDW Std Deviation 39.1 RDW Coeff of Dontae 12.4 Plt Count 183 MPV 11.5 Immature Gran % (Auto) 0.500 Neut % (Auto) 67.6 Lymph % (Auto) 22.5 [place] % (Auto) 6.4 Eos % (Auto) 2.5 Baso % (Auto) 0.5 Absolute Neuts (auto) 5.1 Absolute Lymphs (auto) 1.69 Nucleated RBC % 0 D-Dimer Quant (PE/DVT) < 0.27 L Sodium 140 Potassium 2.8 L Chloride 104 Carbon Dioxide 28.0 Anion Gap 8 BUN 10 Creatinine 0.89 Estim Creat Clear Calc 57.94 Est GFR (MDRD) Af Amer 88 Est GFR (MDRD) Non-Af 73 BUN/Creatinine Ratio 11.2 Glucose 200 H Calcium 8.5 Troponin I High Sens 4 Serum , Qual 06/18/22 06/18/22 15:00 17:15 WBC RBC Hgb Hct MCV MCH MCHC RDW Std Deviation RDW Coeff of Dontae Plt Count MPV Immature Gran % (Auto) Neut % (Auto) Lymph % (Auto) Freeborn % (Auto) Eos % (Auto) Baso % (Auto) Absolute Neuts (auto) Absolute Lymphs (auto) Nucleated RBC % D-Dimer Quant (PE/DVT) Sodium Potassium Chloride Carbon Dioxide Anion Gap BUN Creatinine Estim Creat Clear Calc Est GFR (MDRD) Af Amer Est GFR (MDRD) Non-Af BUN/Creatinine Ratio Glucose Calcium Troponin I High Sens < 3 L Serum , Qual NEGATIVE Radiography Chest X-Ray - ED: 1 View, Read by ED Physician, Normal, Heart, Lungs and Mediastinum Diagnostic Testing: Clinical Impression(s) from Imaging Studies Chest X-Ray 06/18/22 16:04 IMPRESSION: No acute cardiopulmonary process. Electronically Signed: Alcides Pizano MD at 16:39 EDT , EKG Initial EKG: Attestation: I personally reviewed and interpreted this EKG as follows: Interpretation: Sinus Rhythm (Sinus at [address] change.) Treatment and Re-Evaluation Narrative: PulmEKG reveals no acute ischemia. Chest x-ray per my interpretation is normal. CBC and chemistry studies significant for potassium low at 2.8. 4. D-dimer is negative and test negative. 2-hour repeat troponin is less than 3. Patient has been given oral potassium replacement here and will be given prescription for 4 additional days at home. Return instructions provided. Discharge Plan Triage Chief Complaint: Chest Pain ED Provider: Edie Bruce Dx/Rx/DC Orders Clinical Impression: Chest pain, Hypokalemia Instructions: ED Chest Pain, Uncertain Cause, ED Hypokalemia Prescriptions: New potassium chloride 20 mEq tablet extended release 20 meq PO BID Qty: 8 0RF No Action omeprazole 40 MG capsule,delayed release(DR/EC) 40 mg PO DAILY Label Comments: take 1 capsule by mouth once daily albuterol sulfate [Ventolin HFA] 1 INHALER inhaler 1 - 2 puff inhalation Q4H PRN PRN (Reason: Asthma) epinephrine 0.3 MG syringe 0.3 mg subcut X1 PRN (Reason: allergy) cetirizine 5 mg tablet 5 mg PO DAILY Label Comments: take 1 tablet by mouth once daily aspirin 81 mg tablet,delayed release (DR/EC) 81 mg PO DAILY Label Comments: take 1 tablet by mouth every morning metoprolol succinate 25 mg tablet extended release 24 hr 25 mg PO QHS Label Comments: take 1 tablet by mouth at bedtime clindamycin HCl 300 mg capsule 300 mg PO TID Label Comments: take 1 capsule by mouth three times a day for 10 days doxycycline hyclate 100 mg tablet 100 mg PO BID Label Comments: take 1 tablet by mouth twice a day for 7 days Primary Care Provider: Juan Garcia Referrals: Juan Garcia MD [Primary Care Provider] - 1-2 Weeks Disposition Disposition: Home, Self Care
[2022-06-18 15:31] VITALS: O2SAT 96
[2022-06-18] MEDS: Ketorolac 30 MG/ML Syringe IV (15:32)
[2022-06-18] MEDS: 0.9% Normal Saline 1,000 ML 150 ML IV (15:32)
[2022-06-18 15:50] LABS: Internal QC Validated? YES +Cl - CLEAR BKGD
[2022-06-18 15:51] LABS: Absolute Lymphocyte Count 1.69 X10^3/uL (0.83-4.51); Absolute Neutrophil Count 5.1 X10^3/uL (2.0-7.7); Basophil# 0.04 X10^3/uL; Basophil% 0.5 % (0-1); Eosinophil# 0.19 X10^3/uL; Eosinophils% 2.5 % (0-5); Hematocrit 40.8 % (37-47); Hemoglobin 14.1 g/dL (12.0-15.0); Lymphocyte # 1.69 X10^3/ul (0.83-4.51); Lymphocyte % 22.5 % (19-41); Mean Corp Hgb Conc 34.6 g/dL (32-36); Mean Corpuscular Hgb 29.7 pg (27.0-32.0); Mean Corpuscular Volume 86.1 fL (81-99); Mean Platelet Vol. 11.5 fl (6.2-12.0); Monocyte# 0.48 X10^3/uL; Monocyte% 6.4 % (0-10); NRBC Flagged by Analyzer 0 % (0-5); Neutrophil # 5.06 X10^3/uL (2.7-7.7); Neutrophil % 67.6 % (47-70); Platelet Count 183 K/mm3 (150-450); RBC Distribution Width CV 12.4 % (11.6-14.6); RBC Distribution Width SD 39.1 fl (35.1-43.9); Red Blood Count 4.74 M/mm3 (4.2-5.4); White Blood Count 7.5 K/mm3 (4.4-11.0)
[2022-06-18 15:59] LABS: Pregnancy, Serum, hCG Quali. NEGATIVE Negative
--- NOTE | 2022-06-18 16:04 | RAD_ITS ---
STUDY: X-RAY CHEST REASON FOR EXAM: Female, 46 years old. chest pain TECHNIQUE: 1 view COMPARISON: 05/01/2021 FINDINGS: Cardiomediastinal silhouette is unremarkable. Costophrenic angles are sharp. Lungs are clear. The trachea is midline. There is no pneumothorax. The bones are grossly intact. RAD/Chest 1 View (Portable) IMPRESSION: No acute cardiopulmonary process. Electronically Signed: Alcides Pizano MD at 16:39 EDT ,
[2022-06-18 16:09] LABS: Anion Gap 8 (5-15); BUN 10 mg/dL (7-18); BUN/Creat Ratio 11.2 RATIO (10-20); Calcium,Total 8.5 mg/dL (8.5-10.1); Chloride 104 mmol/L (98-107); Creatinine, Serum 0.89 mg/dL (0.55-1.02); EST Glomerular Filtration Rate 73 mL/min (>60); Est Glom Filt Rate - Afr Amer 88 mL/min (>60); Estimated Creatinine Clearance 57.94 ml/min; Glucose 200 mg/dL (74-106); Potassium 2.8 mmol/L (3.5-5.1); Sodium Level 140 mmol/L (136-145); Troponin-I HS (w/2H Reflex) 4 pg/mL (3.0-54.0)
[2022-06-18 16:15] VITALS: BP 113/81; PULSE 69; RESP 16; O2SAT 96
[2022-06-18] MEDS: Potassium Chloride Oral Tablet 20 MEQ 40 MEQ PO (16:15)
[2022-06-18 16:23] LABS: D-Dimer Quantitative (DVT/PE) < 0.27 FEU/ug/m (0.27-0.49)
[2022-06-18 17:02] VITALS: BP 107/75; PULSE 65; RESP 20; O2SAT 96
[2022-06-18 17:05] LABS: Reflex Troponin-HS? (from REC) Y
[2022-06-18 17:38] LABS: Troponin-I HS < 3 pg/mL (3.0-54.0)
[2022-06-18 17:54] VITALS: BP 120/74; PULSE 67; RESP 18; O2SAT 100
== END 2022-06-18 18:04 | disposition home or self-care (01) ==
PROVIDERS: Emergency Provider Emergency Medicine; PCP Family Medicine; Visit Provider Emergency Medicine
DX: R07.9 Chest pain, unspecified (principal); E87.6 Hypokalemia; J45.909 Unspecified asthma, uncomplicated; Z79.82 Long term (current) use of aspirin; Z79.899 Other long term (current) drug therapy; Z87.891 Personal history of nicotine dependence
CPT/HCPCS: 71045; 80048; 84484; 84703; 85025; 85379; 93005; 96374; 99283; J7030; A4216

== ENCOUNTER → 2022-08-23 | Outpatient (CLI) | payer MEDICARE, MEDICAID, SELFPAY ==
--- NOTE | 2022-08-23 | CYSPIN_PTH ---
PATIENT: SONY MCGINNIS LOC: [facility] U#:[id number] AGE/SX: 46/F ROOM: RE08/23/[address]: Dr. Leeanne Ying MD : [id number] BED: DIS: 08/23/2022 SPEC #: [id number] RECD: 08/24/22 08:21 STATUS: CHEYANNE DEWEYRadha #: [id number] IRMA: 08/23/22 00:[address]: Leeanne Ying DEPT: CYTOLOGY RECD BY: Renzo Sandra ENTERED: 08/24/22 08:21 SP TYPE: CYSPIN FL OTHR DR: Dr. Juan Garcia MD Tissues: Urine Procedures: Pap Stain (control) Special Stain Group II Cytospin Fluid HEADER OPERATION: Not noted PRE-OP DIAGNOSIS: Gross hematuria TISSUE SUBMITTED: Urine for cytology DIAGNOSIS CYTOLOGY Urine for cytology (cytospin): Negative for high-grade urothelial carcinoma (NEGUC), (Danuta System Category II). Acute inflammation. See comment. SJ:emile 08/24/2022 COMMENT The specimen predominantly consists of benign squamous epithelial cells and neutrophils. The Danuta System for urine cytology diagnostic categorization was used in the evaluation of this case. Clinical correlation and appropriate follow up are necessary. CYTOLOGY STUDY Slides are reviewed. CYTOLOGY GROSS Received is 20 ml of yellow cloudy fluid labeled with the patient's name and and designated per the requisition as urine. Submitted for cytology preparation. / emile 08/24/2022 TC:2 CPT: 13199
[2022-08-23 17:42] LABS: Cytology, Body Fluid / CSF SEE PATHOLOGY REPORT
== END | disposition home or self-care (01) ==
PROVIDERS: PCP Family Medicine; Visit Provider Urology
DX: R31.0 Gross hematuria (principal)
CPT/HCPCS: 88108; 88313

== ENCOUNTER → 2022-09-08 | Outpatient (CLI) | payer MEDICARE, MEDICAID, SELFPAY ==
--- NOTE | 2022-09-08 16:51 | CT_ITS ---
STUDY: CT Abdomen And Pelvis WO/W Contrast Injection 09/08/2022 5:21 PM REASON FOR EXAM: Female, 46 years old. ABDOMINAL PAIN GROSS HEMATURIA Technologist Notes VAGINAL PAIN X MONTHS, HX IRMA, TECHNIQUE: Transaxial images were obtained without oral contrast, and with and without IV 100mL [id number]-300 intravenous contrast. Individualized dose optimization techniques were used for this CT. COMPARISON: 01.22.22. FINDINGS: The visualized lung bases are unremarkable. The visualized portions of the heart are within normal limits. Unremarkable liver. There is non-visualization of the gallbladder, which may be secondary to either contraction or a prior cholecystectomy. Unremarkable spleen. Unremarkable pancreas. Unremarkable bilateral adrenal glands. No acute findings of the right kidney. No acute findings of the left kidney. Unremarkable visualized stomach. Unremarkable small intestine. Unremarkable colon. The appendix is visualized and appears unremarkable. There are no acute findings of the abdominal aorta. Unremarkable inferior vena cava. Subcentimeter mesenteric lymph nodes. Unremarkable urinary bladder. Right sided exophytic fibroid of the uterus. There are bilateral tubal ligation clips. There is an umbilical hernia containing fat. Unremarkable osseous structures. CT/CT Abd/Pelvis W/WO Contrast IMPRESSION: (NOT LISTED IN ORDER OF SIGNIFICANCE) Fibroid uterus. Other findings as above. Electronically Signed: Jordy Sawant MD at 17:25 [facility] ,
== END | disposition home or self-care (01) ==
LOC: CT 16:50
PROVIDERS: PCP Family Medicine; Referring Provider Urology; Visit Provider Urology
DX: R31.0 Gross hematuria (principal)
CPT/HCPCS: 74178; Q9967

== ENCOUNTER 2022-09-28 13:54 | Day surgery (SDC) | payer MEDICARE, MEDICAID, SELFPAY ==
[2022-09-28] VITALS (8 sets, daily range): BP systolic 106–128; BP diastolic 72–80; PULSE 67–74; RESP 16–17; TEMP 36.3–36.9; O2SAT 93–97; BMI 37.0
[2022-09-28] MEDS: Lactated Ringers 1,000 ML 15 ML IV (14:05)
--- NOTE | 2022-09-28 14:53 | PCM.OPRPT ---
Report of Operation Date of Procedure: 09/28/22 Pre-Operative Diagnosis: gross hematuria, mixed incontinence Post-Operative Diagnosis: same, urethral stricture, acute vaginitis Surgery/Procedure Performed:: cystoscopy, pelvic exam under anesthesia, urethral dilation Surgeon: Leeanne Ying Type of Anesthesia: MAC Description of Procedure: The patient is a 46-year-old female with gross hematuria, mixed urinary incontinence who presents for evaluation under anesthesia. Informed consent has been obtained. The patient was taken to the operating room and placed on the operating room table. Anesthesia monitored the head, neck, airway, IV access and vital signs throughout the case. Once anesthesia was appropriately administered, the patient was placed into dorsolithotomy position was prepped and draped in usual sterile fashion. The urethral meatus was narrowed and unable to accommodate the cystoscope. It was dilated from 14 [place] to 22 [place] with urethral sounds. The cystoscope was inserted through the urethra under direct visualization into the urinary bladder. The bladder mucosa was visualized in its entirety without evidence of mass, erythema, ulceration or foreign body. The urinary bladder was then emptied the pelvic examination revealed thin yellow discharge and erythema consistent with bacterial vaginitis, no significant prolapse. The external genitalia was also erythematous with cracking. I am not sure if this is secondary to the acute vaginitis or to another disease process such as psoriasis etc she may need biopsy after the acute infection has resolved. At this time the case was terminated and the patient was awakened and taken to the operating room in good condition. There were no complications during this procedure. Grafts/Implants Used: none Complications none Admit VTE Documentation VTE Present on Admission: No VTE Pharm Prophylaxis ordered?: No Reason prophylaxis not ordered:: Treatment Not Indicated
--- NOTE | 2022-09-28 14:54 | EX.PCM.DISCH ---
Discharge Instructions Diet Discharge Diet: No restrictions Activity Discharge Activity: Return to Normal Activity May resume sexual activity in: No Restrictions Dressing / Incision Call your doctor if you observe: Fever of 101 or Higher, Inability to urinate and Inability to have a bowel movement Follow Up Care Please Follow Up With: Leeanne Ying MD When: call for appt to be seen in 2-3 weeks Test Results: Test results from this visit will be discussed in further detail at your follow-up appointment, if applicable. Discharge Plan Admission Attending Provider: Leeanne Ying Primary Care Provider: Juan Garcia Discharge Orders/Prescriptions Prescriptions: Continued omeprazole 40 MG capsule,delayed release(DR/EC) 40 mg PO DAILY Label Comments: take 1 capsule by mouth once daily albuterol sulfate [Ventolin HFA] 1 INHALER inhaler 1 - 2 puff inhalation Q4H PRN PRN (Reason: Asthma) epinephrine 0.3 MG syringe 0.3 mg subcut X1 PRN (Reason: allergy) cetirizine 5 mg tablet 5 mg PO DAILY Label Comments: take 1 tablet by mouth once daily Referrals / Follow Up: Juan Garcia MD [Primary Care Provider] - Disposition Disposition (needs filled in before D/C Order can be placed): Home, Self Care
--- NOTE | 2022-09-28 16:17 | DCINST_ITS ---
Discharge Instructions Diet Discharge Diet: No restrictions Activity May resume sexual activity in: No Restrictions Dressing / Incision Call your doctor if you observe: Fever of 101 or Higher, Inability to urinate and Inability to have a bowel movement Follow Up Care Please Follow Up With: Leeanne Ying MD Test Results: Test results from this visit will be discussed in further detail at your follow- up appointment, if applicable. Discharge Plan Admission Attending Provider: Leeanne Ying Primary Care Provider: Juan Garcia Discharge Orders/Prescriptions Prescriptions: New sulfamethoxazole-trimethoprim [sulfamethoxazole-trimethoprim] 800-160 mg tablet 1 tab PO BID 3 Days Qty: 6 0RF metronidazole 500 mg tablet 500 mg PO BID 7 Days Qty: 14 0RF Continued omeprazole 40 MG capsule,delayed release(DR/EC) 40 mg PO DAILY Label Comments: take 1 capsule by mouth once daily albuterol sulfate [Ventolin HFA] 1 INHALER inhaler 1 - 2 puff inhalation Q4H PRN PRN (Reason: Asthma) epinephrine 0.3 MG syringe 0.3 mg subcut X1 PRN (Reason: allergy) cetirizine 5 mg tablet 5 mg PO DAILY Label Comments: take 1 tablet by mouth once daily Referrals / Follow Up: Juan Garcia MD [Primary Care Provider] - Disposition Disposition (needs filled in before D/C Order can be placed): Home, Self Care
== END 2022-09-28 17:25 | disposition home or self-care (01) ==
LOC: SDC 13:55 → AC 13:57
PROVIDERS: PCP Family Medicine; Referring Provider Urology; Visit Provider Urology
PROC: 0TJB8ZZ Inspection of Bladder, Via Natural or Artificial Opening Endoscopic (ICD-10-PCS; CPT 57410; principal; 2022-09-28 15:35)
DX: N76.0 Acute vaginitis (principal); N35.92 Unspecified urethral stricture, female; R32 Unspecified urinary incontinence; R31.0 Gross hematuria; N94.11 Superficial (introital) dyspareunia
CPT/HCPCS: 52005; 00910; J7120; J2405

== ENCOUNTER 2022-09-30 11:43 | Emergency (ER) | payer MEDICARE, MEDICAID, SELFPAY ==
[2022-09-30 11:44] VITALS: BP 131/88; PULSE 86; RESP 16; TEMP 36.3; O2SAT 96; BMI 36.7
--- NOTE | 2022-09-30 13:25 | EDS_ITS ---
HPI History of Present Illness Chief Complaint: Allergic Reaction Narrative Narrative: 46-year-old female presenting for concern with allergic reaction. She states that her hands and feet feel swollen. She also states that her upper lip feels swollen. She does not have abdominal pain, nausea, vomiting. She does feel subjectively short of breath. She denies any chest pain. Patient states that she had a cystoscope done by Dr. Ying 2 days ago. She was started on Flagyl and Bactrim yesterday. She states that she was told that she is likely having allergic reaction to Flagyl. She is never had this before. She states she is never been on Bactrim before either. She is not sure what she is being treated for. [facility] Medical History Anemia Anxiety Asthma delivery delivered Depression Gastric reflux History of echocardiogram History of ulceration Hypertension Injury of back Migraine headache Seizures Smoker Wears glasses Wears hearing aid Home Medications omeprazole 40 mg capsule,delayed release 40 mg PO DAILY 06/04/17 [History Last Taken Unknown] albuterol sulfate 90 mcg/actuation aerosol inhaler (Ventolin HFA) 1 - 2 puff inhalation Q4H PRN PRN Asthma 09/13/17 [History Last Taken Unknown] epinephrine 0.3 mg/0.3 mL injection, auto-injector 0.3 mg subcut X1 PRN allergy 09/30/18 [History Last Taken Unknown] cetirizine 5 mg tablet 5 mg PO DAILY 01/22/22 [History Last Taken Unknown] metronidazole 500 mg tablet 500 mg PO BID 7 days #14 tabs 09/28/22 [Rx Last Taken Unknown] sulfamethoxazole 800 mg-trimethoprim 160 mg tablet 1 tab PO BID 3 days #6 TABLETS 09/28/22 [Rx Last Taken Unknown] Allergy/AdvReac Type Severity Reaction Status Date / Time Penicillins Allergy Rash Verified 09/30/22 11:46 bee venom protein (honey bee) AdvReac Anaphylaxis Verified 09/30/22 11:46 metronidazole [From Flagyl] AdvReac Rash Verified 09/30/22 11:46 Surgical History History of esophagogastroduodenoscopy (EGD) Hx laparoscopic cholecystectomy Social History Smoking Status: Current some day smoker tobacco type: cigarettes and e- cigarettes ROS ROS ED Constitutional Constitutional ED: Denies chills or fever(s) Eyes Eyes: Denies diplopia ENT ENT ED: Reports other Details: Upper lip swelling ; Denies rhinorrhea or sore throat Cardiovascular Cardiovascular: Denies chest pain or palpitations Respiratory/Chest Respiratory/Chest: Denies cough or dyspnea Gastrointestinal Gastrointestinal: Denies abdominal pain, nausea or vomiting Genitourinary Genitourinary ED: Denies dysuria or hematuria Musculoskeletal Musculoskeletal: Reports other Details: Hand and foot swelling ; Denies arthralgias Integumentary Denies abscess Neurologic Neurologic: Reports headache(s) EXAM Physical Exam Const Vital Signs: 09/30/22 11:44 Temperature 97.4 F L Temperature Source Temporal Pulse Rate 86 Respiratory Rate 16 Blood Pressure 131/88 H Blood Pressure Mean 102 Pulse Ox 96 Oxygen Delivery Method Room Air Positive well nourished General Appearance ED: NAD; Negative for pallor HEENT Reports normocephalic and moist mucous membranes normocephalic Face and Sinus: normal facial exam Nose: external nose normal, nares normal and nasal mucous membranes and turbinates normal Mouth ED: Yes oral and palatal mucosa normal, Yes tongue normal, Yes salivary gland normal, Yes moist mucous membranes normal and No drooling Mouth: oral and palatal mucosa normal, tongue normal, salivary gland normal and No drooling Throat: posterior oropharynx normal Eyes PERRL General Eye ED: Yes pale conjunctiva Neck no lymphadenopathy Chest Wall inspection of chest normal Resp normal respiratory effort Auscultation: Negative for rales, rhonchi or wheezes Cardio regular rate and regular rhythm GI normal to inspection, nondistended, normoactive bowel sounds Neuro oriented x3 and CN's II-XII intact bilaterally Skin no rashes or lesions noted General Skin Exam: Negative for jaundice or pallor MDM MDM MDM Narrative Medical decision making narrative: Patient concerned that her upper lip is swollen. Subjectively I do not appreciate any significant swelling. Oropharynx is patent without stridor. Tongue is normal. No sublingual edema. Not appreciate any stridor. She also states that her hands are swollen. I do not see any pitting edema here. She has full range of motion. She is neurovascular intact cap refill to all 10 fingers bilaterally. We will treat the patient with Solu-Medrol, Pepcid, Benadryl and monitor. I will try to speak with urology. CBC and BMP are unremarkable. Urinalysis shows 500 leukocyte esterase, 50-100 white blood cells, 5-10 squamous epithelial cells and 3+ bacteria. On reevaluation although she did not look edematous to me her lip is actually much smaller. She is feeling improved. Her hands do in fact look like they are less swollen. I spoke with urology who recommended holding her antibiotics. They recommended a straight catheter sent for culture. Urology will follow up with her regarding treatment for possible UTI. Patient minimal this plan. Discharged in stable condition. Impression: 1. Allergic reaction 2. Lip swelling resolved 3. Hand swelling is Lab Data Attestation: I reviewed the patient's lab results. Labs: Laboratory Results - last 24 hr 09/30/22 09/30/22 09/30/22 14:13 14:13 14:25 WBC 6.8 RBC 4.42 Hgb 13.1 Hct 39.3 MCV 88.9 MCH 29.6 MCHC 33.3 RDW Std Deviation 39.4 RDW Coeff of Dontae 12.3 Plt Count 147 L MPV 11.1 Immature Gran % (Auto) 0.600 Neut % (Auto) 74.3 H Lymph % (Auto) 16.4 L [place] % (Auto) 5.6 Eos % (Auto) 2.5 Baso % (Auto) 0.6 Absolute Neuts (auto) 5.0 Absolute Lymphs (auto) 1.11 Nucleated RBC % 0 Sodium 140 Potassium 3.5 Chloride 109 H Carbon Dioxide 25.0 Anion Gap 6 BUN 13 Creatinine 0.77 Estim Creat Clear Calc 66.97 Est GFR (MDRD) Af Amer 104 Est GFR (MDRD) Non-Af 86 BUN/Creatinine Ratio 16.8 Glucose 107 H Calcium 8.2 L Urine Color Yellow Urine Clarity Cloudy Urine pH 6.5 Ur Specific [place] 1.020 Urine Protein 30 H Urine Glucose (UA) Normal Urine Ketones Negative Urine Occult Blood 50 H Urine Nitrite Negative Urine Bilirubin Negative Urine Urobilinogen 1 H Ur Leukocyte Esterase 500 H Urine RBC 0 SEEN Urine WBC 50-100 SEEN Ur Squamous Epith Cells 5-10 SEEN Urine Bacteria 3+ Urine Mucus 1+ Discharge Plan Triage Chief Complaint: Allergic Reaction ED Provider: Sammy Vick Dx/Rx/DC Orders Instructions: ED ADVERSE DRUG REACTION Allergic Prescriptions: No Action omeprazole 40 MG capsule,delayed release(DR/EC) 40 mg PO DAILY Label Comments: take 1 capsule by mouth once daily albuterol sulfate [Ventolin HFA] 1 INHALER inhaler 1 - 2 puff inhalation Q4H PRN PRN (Reason: Asthma) epinephrine 0.3 MG syringe 0.3 mg subcut X1 PRN (Reason: allergy) cetirizine 5 mg tablet 5 mg PO DAILY Label Comments: take 1 tablet by mouth once daily sulfamethoxazole-trimethoprim [sulfamethoxazole-trimethoprim] 800-160 mg tablet 1 tab PO BID 3 Days Qty: 6 0RF metronidazole 500 mg tablet 500 mg PO BID 7 Days Qty: 14 0RF Primary Care Provider: Juan Garcia Referrals: Juan Garcia MD [Primary Care Provider] - Disposition Disposition: Home, Self Care
[2022-09-30] MEDS: DiphenhydrAMINE 50 MG/ML Syringe IV (14:07)
[2022-09-30] MEDS: MethylPREDNISolone 125 MG/2 ML Vial IV (14:07)
[2022-09-30] MEDS: 0.9% Normal Saline 1,000 ML 999 ML IV (14:07)
[2022-09-30 14:19] LABS: Absolute Lymphocyte Count 1.11 X10^3/uL (0.83-4.51); Basophil# 0.04 X10^3/uL; Basophil% 0.6 % (0-1); Eosinophil# 0.17 X10^3/uL; Eosinophils% 2.5 % (0-5); Hematocrit 39.3 % (37-47); Hemoglobin 13.1 g/dL (12.0-15.0); Lymphocyte # 1.11 X10^3/ul (0.83-4.51); Lymphocyte % 16.4 % (19-41); Mean Corp Hgb Conc 33.3 g/dL (32-36); Mean Corpuscular Hgb 29.6 pg (27.0-32.0); Mean Corpuscular Volume 88.9 fL (81-99); Mean Platelet Vol. 11.1 fl (6.2-12.0); Monocyte# 0.38 X10^3/uL; Monocyte% 5.6 % (0-10); NRBC Flagged by Analyzer 0 % (0-5); Neutrophil # 5.01 X10^3/uL (2.7-7.7); Neutrophil % 74.3 % (47-70); Platelet Count 147 K/mm3 (150-450); RBC Distribution Width CV 12.3 % (11.6-14.6); RBC Distribution Width SD 39.4 fl (35.1-43.9); Red Blood Count 4.42 M/mm3 (4.2-5.4); White Blood Count 6.8 K/mm3 (4.4-11.0)
[2022-09-30 14:32] LABS: Anion Gap 6 (5-15); BUN 13 mg/dL (7-18); BUN/Creat Ratio 16.8 RATIO (10-20); Calcium,Total 8.2 mg/dL (8.5-10.1); Chloride 109 mmol/L (98-107); Creatinine, Serum 0.77 mg/dL (0.55-1.02); EST Glomerular Filtration Rate 86 mL/min (>60); Est Glom Filt Rate - Afr Amer 104 mL/min (>60); Estimated Creatinine Clearance 66.97 ml/min; Glucose 107 mg/dL (74-106); Potassium 3.5 mmol/L (3.5-5.1); Sodium Level 140 mmol/L (136-145)
[2022-09-30 14:33] LABS: Red Blood Cells-Urine 0 SEEN /hpf (0-5)
[2022-09-30 14:38] LABS: Color, Urine Yellow (Yellow); Glucose, Dipstick Normal (Normal); Ketone-Dipstick Negative (Negative); Leukocyte Esterase-Dipstick 500 /ul (Negative); Nitrite-Dipstick Negative (Negative); Occult Blood-Urine 50 /ul (Negative); Protein-Dipstick 30 mg/dl (Negative); Urine Bilirubin Dipstick Negative (Negative); Urine Clarity Cloudy (Clear); Urine Urobilinogen 1 mg/dl (Normal); Urine pH 6.5 (5.0 - 8.0)
[2022-09-30 14:48] LABS: White Blood Cells 50-100 SEEN /hpf (0-5)
[2022-09-30 14:49] LABS: Bacteria 3+ /hpf (None Seen); Mucous, Urine 1+ /hpf (<or=2+); Squamous Epithelial Cells - UA 5-10 SEEN /hpf (5-10)
[2022-09-30] MEDS: Famotidine 200 MG/20 ML MDV 20 MG in 0.9% Normal Saline (Pres. free 8 ML 300 MG IV (15:39)
[2022-09-30 16:03] VITALS: BP 150/82; PULSE 76; RESP 15; O2SAT 100
== END 2022-09-30 16:04 | disposition home or self-care (01) ==
PROVIDERS: Emergency Provider Student in an Organized Health Care Education/Training Program; PCP Family Medicine; Visit Provider Student in an Organized Health Care Education/Training Program
DX: M79.89 Other specified soft tissue disorders (principal); F17.210 Nicotine dependence, cigarettes, uncomplicated; T36.95XA Adverse effect of unspecified systemic antibiotic, initial encounter; I10 Essential (primary) hypertension; R10.9 Unspecified abdominal pain; F17.290 Nicotine dependence, other tobacco product, uncomplicated
CPT/HCPCS: 80048; 81001; 85025; 87086; 96374; 96375; 99284; J7030; P9612; A4216; J3490

== ENCOUNTER → 2023-04-30 | Outpatient (CLI) | payer MEDICARE, MEDICAID, SELFPAY ==
--- NOTE | 2023-04-30 12:54 | ECHOD_ITS ---
Reason For Study: MURMUR Procedure This was a 2D Doppler, Color Flow transthoracic echocardiogram. Exam performed in department. Left Ventricle Normal LV size. Left ventricular systolic function is normal. The estimated ejection fraction is 60 %. Stage 1 diastolic dysfunction. No regional wall motion abnormalities noted. Right Ventricle Normal RV size. Normal systolic function. Atria Normal left atrium. Normal right atrium. Mitral Valve Normal mitral valve. Tricuspid Valve Normal tricuspid valve. Mild (1+) tricuspid valve insufficiency. Pulmonary artery systolic pressure is 38 mmHg. Aortic Valve Trisinus/trileaflet aortic valve. Pulmonic Valve Normal pulmonic valve. Great Vessels Normal aortic root. The pulmonary artery is normal size. Normal inferior vena cava. Pericardium/Pleural No pericardial effusion. MMode/2D Measurements & Calculations LVIDd: 3.9 cm IVSd: 0.82 cm Ao root diam: 3.0 cm LVIDs: 2.6 cm LVPWd: 0.90 cm RVDd: 2.6 cm FS: 32.6 % LAV(MOD-bp): 19.3 ml LVAd ap4: 24.6 cm2 SV(MOD-sp4): 43.7 ml LAV(MOD-bp) Indexed: 10.7 ml/m2 LVLd ap4: 7.6 cm LAV(MOD-sp2): 20.3 ml EDV(MOD-sp4): 67.2 ml LAV(MOD-sp4): 17.3 ml EDV(sp4-el): 68.0 ml LVAs ap4: 13.0 cm2 LVLs ap4: 6.1 cm ESV(MOD-sp4): 23.5 ml ESV(sp4-el): 23.3 ml EF(MOD-sp4): 65.0 % EF(sp4-el): 65.8 % SV(sp4-el): 44.7 ml LA A4 area: 10.0 cm2 LA dimension(2D): 3.0 cm RA A4 area: 8.9 cm2 Time Measurements MV dec time: 0.22 sec Doppler Measurements & Calculations MV E max prudencio: 85.0 cm/sec Lat Peak E' Prudencio: 11.6 cm/sec Med Peak E' Prudencio: 11.0 cm/sec MV A max prudencio: 85.5 cm/sec E/E' lat: 7.4 E/E' med: 7.7 MV E/A: 0.99 Ao V2 max: 145.2 cm/sec LV V1 max: 96.4 cm/sec PA V2 max: 97.5 cm/sec Ao max P.4 mmHg LV V1 max P.7 mmHg TR max prudencio: 292.9 cm/sec TR max P.3 mmHg ECHO/Echo Complete Interpretation Summary Normal LV size. Left ventricular systolic function is normal. The estimated ejection fraction is 60 %. Pulmonary artery systolic pressure is 38 mmHg. Stage 1 diastolic dysfunction. Mild (1+) tricuspid valve insufficiency. Ordering Physician: Jim Ogden Referring Physician: JT FOREMAN Performed By: Elvie Finley RDCS
== END | disposition home or self-care (01) ==
LOC: CVS 12:53
PROVIDERS: PCP Family Medicine; Referring Provider Internal Medicine Cardiovascular Disease; Visit Provider Internal Medicine Cardiovascular Disease
DX: R07.9 Chest pain, unspecified (principal)
CPT/HCPCS: 93306

== ENCOUNTER 2023-06-21 15:44 | Observation (INO) | payer MEDICARE, MEDICAID, SELFPAY ==
[2023-06-21] VITALS (12 sets, daily range): BP systolic 108–130; BP diastolic 72–93; PULSE 61–78; RESP 8–20; TEMP 36.4–37.2; O2SAT 96–99; BMI 36.3; BMI 35.3
--- NOTE | 2023-06-21 15:57 | ED.RN ---
DR. DALAL INFORMED ON PT S/S. NO FURTHER ORDERS.
--- NOTE | 2023-06-21 16:19 | CT_ITS ---
STUDY: CT BRAIN WITHOUT CONTRAST REASON FOR EXAM: Female, 47 years old. numbness RADIATION DOSAGE (If Supplied By Facility): CTDIvol = ( 44.99 ) mGy, DLP = ( 779.24 ) mGycm TECHNIQUE: Transaxial CT imaging of the brain was performed without administration of intravenous contrast material. Individualized dose optimization techniques were used for this CT. COMPARISON: 11/13/2020. FINDINGS: Normal soft tissue structures. Normal calvarium. There is mild cerebral atrophy with widening of the extra-axial spaces and ventricular dilatation. Normal white matter tracts of the cerebral hemispheres. Normal basal ganglia and thalami. Normal brainstem. Normal cerebellum. There is no intracranial hemorrhage. There are no findings of an acute ischemic infarction. Normal visualized paranasal sinuses. CT/Brain/Head without Contrast IMPRESSION: Chronic involutional changes of the brain. Electronically Signed: Beckie Dumont MD at 17:04 EDT Reading Location ID and State: [id number] / Tel , Service support ,
--- NOTE | 2023-06-21 16:19 | EKG12_ITS ---
Test Reason : CP Blood Pressure : / mmHG Vent. Rate : 069 BPM Atrial Rate : 069 BPM P-R Int : 160 ms QRS Dur : 088 ms QT Int : 428 ms P-R-T Axes : 044 004 054 degrees QTc Int : 458 ms Normal sinus rhythm Cannot rule out Inferior infarct (cited on or before 01-MAY-2021) Abnormal ECG Confirmed by SUDEEP MCCONNELL, MARIA LUISA ([id number]), editor in chief SARAH GAUTHIER ([id number]) on 06/22/2023 12:15:55 PM Referred By: PL Confirmed By:MARIA LUISA SHEETS MD
--- NOTE | 2023-06-21 16:21 | EDS_ITS ---
HPI History of Present Illness Chief Complaint: Chest Pain Informant: patient and spouse/S.O. Narrative Narrative: Patient presents with several concerns. History is mostly through . states the only thing that he knows is that her speech is different than normal. He cannot give any further details. Patient states that when she woke up this morning she had numbness of her left arm and it stayed there. It was not there when she went to bed last evening. She does not know what time she went to bed last evening. She also called her doctor today about her blood pressure but she is not sure what she called them regarding her blood pressure. She also mentioned that she had chest pain. But she does not know when she started with chest pain but she has had it for a long time. She is a very poor informant for details. I asked her if this memory problem is new and she tells me that she normally has some memory problems. I asked but he cannot add a lot to the story. Patient does states that her speech has also been off today. No change in medications. No fevers. No trouble breathing. She does have family history of heart disease. Her mother has had 6 stents and is in her young young 60s. But patient is not sure when she started with heart disease but I would be suspicious it is at a younger age. There were more details about that than the rest of the current medical history on the patient. She has trouble telling me what her medicines are. But she is on an inhaler and something for her stomach and something for allergies. None of these are new or different. She used to be a smoker but she does not remember when she quit. The summary is that the patient has had chest pain for some unknown period of time but thought to be a long time. She has had numbness of the left arm and speech difficulty since waking up. [facility] Medical History Anemia Anxiety Asthma delivery delivered Depression Gastric reflux History of cocaine use History of echocardiogram History of ulceration Hypertension Injury of back Lung nodules Migraine headache Seizures Smoker Wears glasses Wears hearing aid Home Medications omeprazole 40 mg capsule,delayed release 40 mg PO DAILY 06/04/17 [History Last Taken Unknown] albuterol sulfate 90 mcg/actuation aerosol inhaler (Ventolin HFA) 1 - 2 puff inhalation Q4H PRN PRN Asthma 09/13/17 [History Last Taken Unknown] epinephrine 0.3 mg/0.3 mL injection, auto-injector 0.3 mg subcut X1 PRN allergy 09/30/18 [History Last Taken Unknown] cetirizine 5 mg tablet 5 mg PO DAILY 01/22/22 [History Last Taken Unknown] Allergy/AdvReac Type Severity Reaction Status Date / Time Penicillins Allergy Rash Verified 06/21/23 15:46 phenazopyridine Allergy Swelling Verified 06/21/23 15:46 [From Pyridium] Seasonal Allergies: Uncoded Allergy Other Verified 06/21/23 15:46 sertraline Allergy Rash Verified 06/21/23 15:46 bee venom protein (honey bee) AdvReac Anaphylaxis Verified 06/21/23 15:46 metronidazole [From Flagyl] AdvReac Rash Verified 06/21/23 15:46 Family History Mother Heart disease Breast cancer CVA (cerebral vascular accident) Grandmother CVA (cerebral vascular accident) Father Heart disease Surgical History History of esophagogastroduodenoscopy (EGD) Hx laparoscopic cholecystectomy Social History Smoking Status: Former smoker alcohol intake: current alcohol intake frequency: holidays/special occasions only Alcohol type: beer substance use type: former substance user ROS ROS ED Constitutional Constitutional ED: Denies chills or fever(s) Eyes Eyes: Denies blurry vision, change in vision or diplopia ENT ENT ED: Denies rhinorrhea Cardiovascular Cardiovascular: Reports chest pain; Denies palpitations or racing heartbeat Respiratory/Chest Respiratory/Chest: Denies cough or dyspnea Gastrointestinal Gastrointestinal: Denies abdominal pain, nausea or vomiting Genitourinary Genitourinary ED: Denies dysuria Musculoskeletal Musculoskeletal: Denies myalgias Integumentary Denies rash Neurologic Neurologic: Reports paresthesias and other Details: See history of present illness. ; Denies headache(s) or weakness Psychiatric Psychiatric: Reports anxiety Hematologic/Lymphatic Hematologic/Lymphatic: Denies easy bleeding or easy bruising Allergic/Immunologic Allergic/Immunologic ED: Denies urticaria EXAM Physical Exam Narrative Exam Narrative: Patient is awake and alert. She is sitting comfortably in bed. HEENT I see no asymmetry. Even with smile and closing eyes there is no asymmetry. Neck is supple no meningismus. Equal pulses. No JVD. Lungs are clear bilaterally. She takes good easy breaths without pain or discomfort. No labored breathing. Saturations are normal on room air at 98% saturation showing no hypoxia. Heart is regular. Rate is about 70 on the monitor. I see no ectopy. Heart tones are normal. I hear no murmur. Tones are not muffled. Peripheral pulses occluding upper and lower extremities are equal and strong. Abdomen is soft and nontender Extremities show no notable edema, rash, variation in color or coolness. Neurologic: I do not get any weakness on exam focally. When I have her lift her arms up it seems like both of them are equally weak but she holds them still for 10 seconds. The same happens with her legs. It just seems to take a lot of effort for her to move anything. But there is no actual weakness. No gross visual abnormality. She states she cannot feel her left upper extremity. When I have her close her eyes and I touch 2 areas of her body she will point to her left upper extremity and states that she cannot feel that. But she cannot see me touch it and she cannot feel me touch it but she knows when I touch it. Therefore she does have some sensation remaining. There is no expressive or receptive aphasia. Her speech is slow but her words are crystal-clear. There is no actual dysarthria. She will speak very fluidly and then her words will slow down intermittently. Allowing for one-point for some mild variation of sensory changes, her NIH at most would be about 1. Const Vital Signs: 06/21/23 15:46 06/21/23 16:14 06/21/23 16:16 Temperature 97.9 F Temperature Source Temporal Pulse Rate 72 71 71 Respiratory Rate 8 L 20 H 15 Respiratory Effort Blood Pressure 129/93 H 130/72 H 130/72 H Blood Pressure Mean 105 91 91 Pulse Ox 98 Oxygen Delivery Method Room Air Room Air Room Air 06/21/23 16:22 06/21/23 16:23 06/21/23 16:25 Temperature 99.0 F Temperature Source Oral Pulse Rate 69 Respiratory Rate 19 H Respiratory Effort Normal Non-Labored Blood Pressure 130/72 H Blood Pressure Mean 91 Pulse Ox 96 96 Oxygen Delivery Method Room Air Room Air 06/21/23 16:42 06/21/23 17:27 Temperature Temperature Source Pulse Rate 78 72 Respiratory Rate 18 18 Respiratory Effort Blood Pressure 122/82 H 117/77 Blood Pressure Mean 95 90 Pulse Ox 98 Oxygen Delivery Method Room Air Room Air MDM MDM MDM Narrative Medical decision making narrative: Patient CBC is normal. Patient's electrolytes are normal other than mild decrease of potassium. Although this can cause symptoms I do not think this is low enough to cause her symptoms. Patient's magnesium is normal. Patient's troponin is normal. My independent her potation her CT scan of the head shows no acute process and final reading is similar. My independent should have her chest x-ray is no acute process this and this is also consistent with final reading. I discussed the case directly with the [facility] neurologist. He agrees that there are variances in exam and presentation but she does have some risk factors and symptoms. It is appropriate to give her aspirin. We will admit her and get MRI to make sure there is no acute process. But because her last known well time was almost 24 hours ago and her symptoms are mild she is not a candidate for thrombolysis. I then discussed case with hospitalist. Lab Data Attestation: I reviewed the patient's lab results. Labs: Laboratory Results - last 24 hr 06/21/23 06/21/23 16:13 16:16 WBC 6.6 RBC 4.52 Hgb 14.2 Hct 39.5 MCV 87.4 MCH 31.4 MCHC 35.9 RDW Std Deviation 40.7 RDW Coeff of Dontae 12.9 Plt Count 178 MPV 11.4 Immature Gran % (Auto) 0.300 Neut % (Auto) 55.8 Lymph % (Auto) 32.5 [place] % (Auto) 8.4 Eos % (Auto) 2.1 Baso % (Auto) 0.9 Absolute Neuts (auto) 3.7 Absolute Lymphs (auto) 2.16 Nucleated RBC % 0 Sodium 139 Potassium 3.2 L Chloride 109 H Carbon Dioxide 25.0 Anion Gap 5 BUN 10 Creatinine 0.80 Estim Creat Clear Calc 63.79 Est GFR (MDRD) Af Amer 99 Est GFR (MDRD) Non-Af 82 BUN/Creatinine Ratio 12.4 Glucose 144 H Calcium 8.8 Magnesium 1.9 Troponin I High Sens < 3 L POC Glucose 162 H Radiography Diagnostic Testing: Clinical Impression(s) from Imaging Studies Brain CT 06/21/23 16:19 IMPRESSION: Chronic involutional changes of the brain. Electronically Signed: Beckie Dumont MD at 17:04 EDT Reading Location ID and State: [place] / Tel , Service support , Chest X-Ray 06/21/23 16:35 IMPRESSION: No radiographic evidence of acute cardiopulmonary disease. Electronically Signed: Beckie Dumont MD at 17:33 EDT Reading Location ID and State: [place] / Tel , Service support , EKG Initial EKG: Comments: RateI independent her potation of the patient's EKG done as part of work-up for chest pain and other symptoms shows a normal sinus rhythm 69. No ventricular ectopy. There are some nonspecific diffuse changes but no indication of acute infarct or ischemia. NV interval, QRS duration and QTc are normal. The EKG including nonspecific changes are similar to 04/11/2023. Management Discussion w/another healthcare provider: Hospitalist and Nurse Practitioner Hospitalist Discharge Plan Triage Chief Complaint: Chest Pain ED Provider: Anthony Donovan Dx/Rx/DC Orders Clinical Impression: Hx of chest pain, Left arm numbness, Alteration in speech Primary Care Provider: Juan Garcia Disposition Disposition: Acute Care Hospital [facility]
[2023-06-21 16:30] LABS: Bedside Glucose 162 mg/dL (74-106)
--- NOTE | 2023-06-21 16:35 | RAD_ITS ---
INDICATION: chest pain EXAMINATION/TECHNIQUE: X-RAY - XR Chest 1 View COMPARISON: 06/18/2022. FINDINGS: LINES/DEVICES: None. LUNGS: No consolidation, edema or effusion. No pneumothorax. MEDIASTINUM AND CARDIOVASCULAR STRUCTURES: Cardiac silhouette not enlarged. Central airways and mediastinal contour are unremarkable. BONES AND SOFT TISSUES: Unremarkable. RAD/Chest 1 View (Portable) IMPRESSION: No radiographic evidence of acute cardiopulmonary disease. Electronically Signed: Beckie Dumont MD at 17:33 EDT Reading Location ID and State: [id number] / Tel , Service support ,
--- NOTE | 2023-06-21 16:38 | ED.RN ---
TELECARE ROBOT AT BEDSIDE. PT IN IMAGING.
[2023-06-21 16:44] LABS: Absolute Lymphocyte Count 2.16 X10^3/uL (0.83-4.51); Absolute Neutrophil Count 3.7 X10^3/uL (2.0-7.7); Basophil# 0.06 X10^3/uL; Basophil% 0.9 % (0-1); Eosinophil# 0.14 X10^3/uL; Eosinophils% 2.1 % (0-5); Hematocrit 39.5 % (37-47); Hemoglobin 14.2 g/dL (12.0-15.0); Lymphocyte # 2.16 X10^3/ul (0.83-4.51); Lymphocyte % 32.5 % (19-41); Mean Corp Hgb Conc 35.9 g/dL (32-36); Mean Corpuscular Hgb 31.4 pg (27.0-32.0); Mean Corpuscular Volume 87.4 fL (81-99); Mean Platelet Vol. 11.4 fl (6.2-12.0); Monocyte# 0.56 X10^3/uL; Monocyte% 8.4 % (0-10); NRBC Flagged by Analyzer 0 % (0-5); Neutrophil % 55.8 % (47-70); Platelet Count 178 K/mm3 (150-450); RBC Distribution Width CV 12.9 % (11.6-14.6); RBC Distribution Width SD 40.7 fl (35.1-43.9); Red Blood Count 4.52 M/mm3 (4.2-5.4); White Blood Count 6.6 K/mm3 (4.4-11.0)
[2023-06-21 17:02] LABS: Anion Gap 5 (5-15); BUN 10 mg/dL (7-18); BUN/Creat Ratio 12.4 RATIO (10-20); Calcium,Total 8.8 mg/dL (8.5-10.1); Chloride 109 mmol/L (98-107); EST Glomerular Filtration Rate 82 mL/min (>60); Est Glom Filt Rate - Afr Amer 99 mL/min (>60); Estimated Creatinine Clearance 63.79 ml/min; Glucose 144 mg/dL (74-106); Magnesium 1.9 mg/dL (1.6-2.6); Potassium 3.2 mmol/L (3.5-5.1); Sodium Level 139 mmol/L (136-145); Troponin-I HS (w/2H Reflex) < 3 pg/mL (3.0-54.0)
--- NOTE | 2023-06-21 17:26 | ED.RN ---
TELECARE ASSESSMENT COMPLETE.
--- NOTE | 2023-06-21 17:41 | HP.PCM_ITS ---
HPI - General General Date of Admission: 06/21/23 Date of Service: 06/21/23 Chief Complaint: chest pain HPI Narrative SONY MCGINNIS, is a 47 F with a PMH as outlined who presents via the ED on 06/21/2023 with seemingly vague and varied complaints. She complains of chest pain of undetermined duration. She said she had had it for a while. Chest pain had no aggravating or relieving factors. She denied any dizziness, lightheadedness, palpitations, nausea or vomiting. She also complained of numbness in her left arm which persisted. She also noted that her speech was abnormal. also noted that her speech was not how it was usually. Review of systems was otherwise negative. Vitals in the ED were BP of 117/77, AR of 72, RR of 18 and oxygen sats of 98% on room air. CBC was unremarkable. CHemistry showed sodium of 139, potassium of 3. 2, bicarb of 25 and Cr of 0.8. Initial troponin was <3. CT of the brain showed chronic involutional changes of the brain. Chest x-ray showed no acute cardiopulmonary process and EKG showed no acute ST changes. [facility] telestroke neurology reviewed patient's [place] he did not think this was likely a stroke, requested a U tox and an MRI of the brain. She has been admitted to be managed for strokelike symptoms and chest pain to rule out ACS. [facility] Medical History Anemia Anxiety Asthma delivery delivered Depression Gastric reflux History of cocaine use History of echocardiogram History of ulceration Hypertension Injury of back Lung nodules Migraine headache Seizures Smoker Wears glasses Wears hearing aid Home Medications omeprazole 40 mg capsule,delayed release 40 mg PO DAILY 06/04/17 [History Last Taken Unknown] albuterol sulfate 90 mcg/actuation aerosol inhaler (Ventolin HFA) 1 - 2 puff inhalation Q4H PRN PRN Asthma 09/13/17 [History Last Taken Unknown] epinephrine 0.3 mg/0.3 mL injection, auto-injector 0.3 mg subcut X1 PRN allergy 09/30/18 [History Last Taken Unknown] cetirizine 5 mg tablet 5 mg PO DAILY 01/22/22 [History Last Taken Unknown] Allergy/AdvReac Type Severity Reaction Status Date / Time Penicillins Allergy Rash Verified 06/21/23 15:46 phenazopyridine Allergy Swelling Verified 06/21/23 15:46 [From Pyridium] Seasonal Allergies: Uncoded Allergy Other Verified 06/21/23 15:46 sertraline Allergy Rash Verified 06/21/23 15:46 bee venom protein (honey bee) AdvReac Anaphylaxis Verified 06/21/23 15:46 metronidazole [From Flagyl] AdvReac Rash Verified 06/21/23 15:46 Family History Mother Heart disease Breast cancer CVA (cerebral vascular accident) Grandmother CVA (cerebral vascular accident) Father Heart disease Surgical History History of esophagogastroduodenoscopy (EGD) Hx laparoscopic cholecystectomy Social History Smoking Status: Former smoker alcohol intake: current alcohol intake frequency: holidays/special occasions only Alcohol type: beer substance use type: former substance user Vital Signs Vital Signs Vital Signs: 06/21/23 15:46 06/21/23 16:14 06/21/23 16:16 Temperature 97.9 F Temperature Source Temporal Pulse Rate 72 71 71 Respiratory Rate 8 L 20 H 15 Respiratory Effort Blood Pressure 129/93 H 130/72 H 130/72 H Blood Pressure Mean 105 91 91 Pulse Ox 98 Oxygen Delivery Method Room Air Room Air Room Air 06/21/23 16:22 06/21/23 16:23 06/21/23 16:25 Temperature 99.0 F Temperature Source Oral Pulse Rate 69 Respiratory Rate 19 H Respiratory Effort Normal Non-Labored Blood Pressure 130/72 H Blood Pressure Mean 91 Pulse Ox 96 96 Oxygen Delivery Method Room Air Room Air 06/21/23 16:42 06/21/23 17:27 Temperature Temperature Source Pulse Rate 78 72 Respiratory Rate 18 18 Respiratory Effort Blood Pressure 122/82 H 117/77 Blood Pressure Mean 95 90 Pulse Ox 98 Oxygen Delivery Method Room Air Room Air Weight Weight: 186 lb 1.122 oz Body Mass Index (BMI) 36.3 Physical Exam Const alert, oriented x3 and no apparent distress General Appearance: cooperative HEENT normocephalic and moist oral mucous membranes Neck no lymphadenopathy, supple and no JVD Lymph Lymphatic: no lymphadenopathy noted and no lymphedema noted Resp normal respiratory effort, normal air movement and clear to auscultation bilaterally Cardio regular rate, regular rhythm, S1 normal heart sound, S2 normal heart sound and no murmurs GI normal to inspection, nondistended, normoactive bowel sounds, soft to palpation, non-tender and non-distended Extremity normal capillary refill, no clubbing, cyanosis or edema and no calf tenderness General Extremity: no tenderness to palpation of joints or extremities Skin General Skin Exam: no breakdown and turgor normal Neuro CN's II-XII intact bilaterally, no focal motor deficits and no sensory deficits noted Motor Exam: strength 5/5 throughout Psych thought process normal Mood & Affect: flat affect Results Lab / Micro Data 06/21/23 16:16 06/21/23 16:16 Labs: Laboratory Results - last 24 hr 06/21/23 16:13: POC Glucose 162 H 06/21/23 16:16: WBC 6.6, RBC 4.52, Hgb 14.2, Hct 39.5, MCV 87.4, MCH 31.4, MCHC 35.9, RDW Std Deviation 40.7, RDW Coeff of Dontae 12.9, Plt Count 178, MPV 11.4, Immature Gran % (Auto) 0.300, Neut % (Auto) 55.8, Lymph % (Auto) 32.5, [place] % (Auto) 8.4, Eos % (Auto) 2.1, Baso % (Auto) 0.9, Absolute Neuts (auto) 3.7, Absolute Lymphs (auto) 2.16, Nucleated RBC % 0, Sodium 139, Potassium 3.2 L, Chloride 109 H, Carbon Dioxide 25.0, Anion Gap 5, BUN 10, Creatinine 0.80, Estim Creat Clear Calc 63.79, Est GFR (MDRD) Af Amer 99, Est GFR (MDRD) Non-Af 82, BUN/Creatinine Ratio 12.4, Glucose 144 H, Calcium 8.8, Magnesium 1.9, Troponin I High Sens < 3 L Radiology Impression Brain CT 06/21/23 16:19 IMPRESSION: Chronic involutional changes of the brain. Electronically Signed: Beckie Dumont MD at 17:04 EDT Reading Location ID and State: [id number] / Tel , Service support , Chest X-Ray 06/21/23 16:35 IMPRESSION: No radiographic evidence of acute cardiopulmonary disease. Electronically Signed: Beckie Dumont MD at 17:33 EDT Reading Location ID and State: [id number] / Tel , Service support , Assessment & Plan Assessment/Plan (1) Chest pain of unknown etiology: (2) Stroke-like symptom: PLAN: Plan #Stroke like symptoms * Complained of numbness in her upper extremity. She also complained of slurred speech. * NIH stroke scale was just about 1. * CT of the brain showed no acute intracranial pathology. * Admit to PCU. * For MRI of the brain tomorrow. She just had 2D echo done in April 2023 so we will hold off on that. 2D echo done in April 2023 showed EF of 60% with stage I diastolic dysfunction and mild 1+ tricuspid valve insufficiency * Urine tox also ordered. * Also order MRA of the head and neck with and without contrast. * P.o. aspirin 81 mg daily. High intensity statin. Check A1c. * PT OT consult. Fall precautions. * #Chest pain * Complained of chest pain but said he had been going on for a while. Could not really give any further information about it. We will get a stress test tomorrow. * On aspirin 81 mg daily. Sublingual nitroglycerin as needed. * #GERD: On PPI #DVT prophylaxis: SCDs Charges/Coding Visit Charges Inpatient E&M: 10681 Init Hosp L2
[2023-06-21] MEDS: Aspirin 325 MG Tablet PO (17:42)
--- NOTE | 2023-06-21 17:51 | NURSING ---
PCU OBS KORAM CHEST PAIN, LEFT NUMBNESS
[2023-06-21 18:28] LABS: Hemoglobin A1c 4.7 % (3.8-5.6)
[2023-06-21 18:31] LABS: Reflex Troponin-HS? (from REC) Y
[2023-06-21 18:55] LABS: Amphetamine Urine VISTA NEGATIVE (<1000 ng/mL); Barbiturate Urine VISTA NEGATIVE (< 200 ng/mL); Benzodiazepine Urine VISTA NEGATIVE (< 200 ng/mL); Cocaine Urine VISTA NEGATIVE (< 300 ng/mL); Ecstacy Urine VISTA NEGATIVE (< 500 ng/mL); Methadone Urine VISTA NEGATIVE (< 300 ng/mL); PCP Urine VISTA NEGATIVE (< 25 ng/mL); THC Urine VISTA NEGATIVE (< 50 ng/mL); Vista UDS pH Range 5
[2023-06-21 20:47] LABS: Troponin-I HS < 3 pg/mL (3.0-54.0)
[2023-06-21] MEDS: Acetaminophen 325 MG Tablet 650 MG PO (22:42)
[2023-06-21] MEDS: Atorvastatin Calcium 80 MG Tablet PO (22:43)
[2023-06-22] VITALS (9 sets, daily range): BP systolic 105–128; BP diastolic 72–89; PULSE 62–76; RESP 14–16; TEMP 36.4–36.7; O2SAT 97–99; BMI 35.3
[2023-06-22] MEDS: Potassium Chloride Oral Tablet 20 MEQ 40 MEQ PO (02:41)
[2023-06-22 05:05] LABS: Absolute Lymphocyte Count 1.51 X10^3/uL (0.83-4.51); Absolute Neutrophil Count 3.5 X10^3/uL (2.0-7.7); Basophil# 0.05 X10^3/uL; Basophil% 0.9 % (0-1); Eosinophil# 0.12 X10^3/uL; Eosinophils% 2.1 % (0-5); Hematocrit 38.4 % (37-47); Hemoglobin 13.3 g/dL (12.0-15.0); Lymphocyte # 1.51 X10^3/ul (0.83-4.51); Lymphocyte % 26.4 % (19-41); Mean Corp Hgb Conc 34.6 g/dL (32-36); Mean Corpuscular Hgb 30.7 pg (27.0-32.0); Mean Corpuscular Volume 88.7 fL (81-99); Mean Platelet Vol. 11.3 fl (6.2-12.0); Monocyte# 0.54 X10^3/uL; Monocyte% 9.4 % (0-10); NRBC Flagged by Analyzer 0 % (0-5); Neutrophil # 3.49 X10^3/uL (2.7-7.7); Platelet Count 166 K/mm3 (150-450); RBC Distribution Width CV 12.7 % (11.6-14.6); RBC Distribution Width SD 40.9 fl (35.1-43.9); Red Blood Count 4.33 M/mm3 (4.2-5.4); White Blood Count 5.7 K/mm3 (4.4-11.0)
[2023-06-22 05:30] LABS: Anion Gap 5 (5-15); BUN 9 mg/dL (7-18); BUN/Creat Ratio 11.4 RATIO (10-20); Calcium,Total 8.3 mg/dL (8.5-10.1); Chloride 109 mmol/L (98-107); Cholesterol 130 mg/dL (200); Creatinine, Serum 0.79 mg/dL (0.55-1.02); EST Glomerular Filtration Rate 84 mL/min (>60); Est Glom Filt Rate - Afr Amer 101 mL/min (>60); Estimated Creatinine Clearance 64.59 ml/min; Glucose 123 mg/dL (74-106); High Density Lipoprotein 27 mg/dL; Potassium 3.7 mmol/L (3.5-5.1); Sodium Level 140 mmol/L (136-145); Triglycerides 167 mg/dL; Very Low Density Lipoprotein 33 mg/dL (5-40)
[2023-06-22] MEDS: Aspirin 81 MG TAB.CHEW PO (07:44)
[2023-06-22 08:12] LABS: Mucous, Urine 0 SEEN /hpf (<or=2+); Red Blood Cells-Urine 0 SEEN /hpf (0-5)
[2023-06-22 08:33] LABS: Color, Urine Yellow (Yellow); Glucose, Dipstick Normal (Normal); Ketone-Dipstick Negative (Negative); Leukocyte Esterase-Dipstick 25 /ul (Negative); Nitrite-Dipstick Negative (Negative); Occult Blood-Urine Negative /ul (Negative); Protein-Dipstick Negative (Negative); Specific Gravity, Urine 1.025 (1.002-1.030); Urine Bilirubin Dipstick Negative (Negative); Urine Clarity Cloudy (Clear); Urine Urobilinogen 8 mg/dl (Normal)
[2023-06-22 08:43] LABS: Amorphous Sediment 2+
[2023-06-22 08:46] LABS: Calcium Oxalate Crystals Ur 1+ /hpf (<or=2+); Squamous Epithelial Cells - UA 5-10 SEEN /hpf (5-10); White Blood Cells 0-5 SEEN /hpf (0-5)
[2023-06-22 08:47] LABS: Bacteria 1+ /hpf (None Seen)
--- NOTE | 2023-06-22 09:30 | MRI_ITS ---
INDICATION: stroke like symptoms EXAMINATION: MRA - MRA Head W/O Contrast TECHNIQUE: Routine [place] of [place]/brain 3D time of flight MR angiogram protocol was performed without gadolinium. 3D reconstructions were reviewed. IV Contrast Dosage and Agent: None. COMPARISON: None. FINDINGS: --Anterior Circulation: ICAs: No significant stenosis at the intracranial/visualized segments. ACAs: No significant stenosis at the visualized segments. ACOM: Present. MCAs: No significant stenosis at the visualized segments. --Posterior Circulation: PCOMs: Small bilateral posterior communicating arteries are patent. cloud administrator: No significant stenosis at the visualized segments. BASILAR ARTERY: No significant stenosis. VERTEBRAL ARTERIES: No significant stenosis at the intradural/visualized segments. No evidence of intracranial aneurysm or vascular malformation. MRI/MRA Head ONLY without Contrast IMPRESSION: Normal MRA head. Electronically Signed: Ho Mitchell MD at 12:37 EDT ,
--- NOTE | 2023-06-22 09:30 | MRI_ITS ---
STUDY: MRA NECK WITH AND WITHOUT CONTRAST REASON FOR EXAM: Female, 47 years old. Stroke like symptoms TECHNIQUE: 3-D [id number] (TOF) imaging was performed in an 1.5 T MRI scanner. 17 cc iv Clariscan was administered for the contrast enhanced images. COMPARISON: None. FINDINGS: RIGHT CAROTID ARTERIES: Normal right common carotid artery (CCA). Normal right carotid bulb. Normal origin of the right internal carotid (ICA) artery without a hemodynamically significant stenosis. Normal visualized cervical portion of the right internal carotid artery. Normal origin of the right external carotid artery (ECA). LEFT CAROTID ARTERIES: Normal left common carotid artery (CCA). Normal left carotid bulb. Normal origin of the left internal carotid (ICA) artery without a hemodynamically significant stenosis. Normal visualized cervical portion of the left internal carotid artery. Normal origin of the left external carotid artery (ECA). VERTEBRAL ARTERIES: Normal antegrade flow within the bilateral vertebral artery without a hemodynamically significant stenosis. AORTIC ARCH: Normal aortic arch and origins of the great vessels. Normal subclavian origins of both vertebral arteries. MRI/MRA Neck WITH and W/O Contrast IMPRESSION: 1. Normal bilateral cervical carotid and vertebral arteries. 2. Normal aortic arch and origins of the great vessels. Electronically Signed: Ho Mitchell MD at 12:33 EDT ,
--- NOTE | 2023-06-22 09:30 | MRI_ITS ---
EXAM: MR HEAD WITHOUT INTRAVENOUS CONTRAST CLINICAL INDICATION: stroke like symptoms TECHNIQUE: Multiplanar and multisequence MR images of the brain were obtained without intravenous contrast. COMPARISON: CT head without contrast 06/21/2023. FINDINGS: BRAIN AND EXTRA-AXIAL SPACES: Unremarkable. No intra- or extra-axial hemorrhage. No evidence of acute infarct. No intracranial mass or mass effect. There is preservation of the ochoa/white matter interface. Posterior fossa structures are unremarkable. Ventricles are appropriate for age. No hydrocephalus. Basal cisterns are patent. SELLA: Unremarkable. Normal sella turcica, pituitary gland, infundibular stalk, optic chiasm and hypothalamus. AUDITORY SYSTEM: Unremarkable. The internal auditory canals are patent. BONES/JOINTS: Unremarkable. No discrete lytic or blastic abnormalities. SINUSES: Unremarkable as visualized. Clear. MASTOID AIR CELLS: Unremarkable as visualized. Clear. ORBITS: Unremarkable as visualized. Both globes, extraocular muscles, optic nerves and retrobulbar fat appear unremarkable. VASCULATURE: Unremarkable as visualized. Normal flow voids in the major intracranial circulation. MRI/Brain without Contrast IMPRESSION: Normal MRI brain without intravenous contrast. Electronically Signed: Ho Mitchell MD at 12:42 EDT ,
[2023-06-22] MEDS: Loratadine 10 MG Tablet PO (10:25)
[2023-06-22] MEDS: Pantoprazole Sodium 40 MG Tablet PO (10:25)
--- NOTE | 2023-06-22 11:54 | CHAPLAIN ---
Type of Pastoral Visit _x__ Initial Visit ___ Follow-up Visit ___ On-call Visit ___ General Patient Visit ___ Spiritual Assessment ___ Family Conference ___ Bereavement ___ Rapid Response ___ Code Blue ___ Other (describe below) Pastoral Care Referral From _x__ Patient ___ Family ___ Nurse ___ Physician ___ Conductor Freight ___ Caddymaster ___ Other (describe below) Sacrament/Intervention _x__ Active listening ___ Anointing ___ Rastafari ___ Bereavement ___ Communion ___ Shalonda exploration ___ ___ Life review ___ Prayer ___ Reconciliation ___ Sacrament of Sick _x__ Supportive presence ___ Wedding ___ Other (describe below) Pastoral Comments patient acknowledges change in health, not knowing why changes happened, and not really wanting to be in the hospital; pt admits to some frustration at turn of events; pt has family support; pt states that people will be praying for her; offer of ongoing support as desired
--- NOTE | 2023-06-22 14:57 | PCM.DC ---
Discharge Instructions Diet Discharge Diet: No restrictions Activity Discharge Activity: Return to Normal Activity Weight Bearing Status: Full weight bearing Follow Up Care Please Follow Up With: Juan Garcia MD When: As needed Test Results: Test results from this visit will be discussed in further detail at your follow-up appointment, if applicable. Pending Tests Upon Discharge: None Discharge Plan Admission Admit Date/Time: 06/21/23 17:55 Primary Reason for Your Visit: Chest pain and strokelike symptoms, ACS and CVA rule out Attending Provider: Thomas Barbosa Primary Care Provider: Juan Garcia Consulting Providers: Bre Bolden Instructions Additional Instructions / Restrictions: Please start taking aspirin and atorvastatin daily on discharge. Continue all other home medications as normal. Follow-up with your primary care doctor as needed. Discharge Orders/Prescriptions Prescriptions: New aspirin 81 mg Tablet,Chewable 81 mg PO BREAKFAST 90 Days Qty: 90 0RF atorvastatin 40 mg tablet 40 mg PO QHS 90 Days Qty: 90 0RF Continued omeprazole 40 MG capsule,delayed release(DR/EC) 40 mg PO DAILY Patient Comments: take 1 capsule by mouth once daily albuterol sulfate [Ventolin HFA] 1 INHALER inhaler 1 - 2 puff inhalation Q4H PRN PRN (Reason: Asthma) epinephrine 0.3 MG syringe 0.3 mg subcut X1 PRN (Reason: allergy) cetirizine 5 mg tablet 5 mg PO DAILY Patient Comments: take 1 tablet by mouth once daily fluticasone propionate 50 mcg/actuation spray,suspension 2 spray INTRANASAL DAILY Patient Comments: instill 2 sprays into each nostril once daily Rinse mouth after use Referrals / Follow Up: Juan Garcia MD [Primary Care Provider] - Disposition Disposition (needs filled in before D/C Order can be placed): Home, Self Care
--- NOTE | 2023-06-22 15:00 | PCM.DC.SUM ---
Providers Date of Admission: 06/21/23 Date of Discharge: 06/22/23 Primary Care Physician: Dr. Juan Garcia MD Reason For Visit: STROKE LIKE SYMPTOMS Diagnosis Discharge Diagnosis (1) Chest pain of unknown etiology: Status: Acute Code(s): R07.9 - Chest pain, unspecified (2) Stroke-like symptom: Status: Acute Code(s): R29.90 - Unspecified symptoms and signs involving the nervous system Medications at Discharge Home Medications omeprazole 40 mg capsule,delayed release 40 mg PO DAILY 06/04/17 albuterol sulfate 90 mcg/actuation aerosol inhaler (Ventolin HFA) 1 - 2 puff inhalation Q4H PRN PRN Asthma 09/13/17 epinephrine 0.3 mg/0.3 mL injection, auto-injector 0.3 mg subcut X1 PRN allergy 09/30/18 cetirizine 5 mg tablet 5 mg PO DAILY 01/22/22 fluticasone propionate 50 mcg/actuation nasal spray,suspension 2 spray intranasal DAILY allergies 06/21/23 aspirin 81 mg chewable tablet 81 mg PO BREAKFAST 90 days #90 tabs 06/22/23 atorvastatin 40 mg tablet 40 mg PO QHS 90 days #90 tabs 06/22/23 Hospital Course Procedures Stress test and - (CT brain without contrast, chest x-ray, MRI brain without contrast, MRA head/neck,) Summary of Care Provided Minutes Spent on Discharge: 38 Hospital Course: Patient is a 47-year-old female with history of anxiety/depression, GERD and asthma who presented to [facility] 06[facility] with multiple concerns including chest pain, left arm numbness, slurred speech. Multiple medical conditions addressed during hospitalization as noted below. Left arm numbness, slurred speech, CVA rule out: NIH stroke scale of [address] brain without contrast showed no acute intracranial pathology. [facility] teleneurology felt stroke was less likely but requested MRI brain as well as a urine toxicology. Urine tox screen was negative. MRI brain without contrast was normal. MRA head/neck was normal. Lipid profile was fairly benign, did have HDL of only 27. Hemoglobin A1c was 4.7%. Patient was initiated on aspirin and atorvastatin. Had good resolution of symptoms prior to discharge. Discharged home in stable condition on 06/22. Chest pain, ACS rule out: Vitals in ED were normal. EKG was unremarkable. Initial troponin was less than 3. Chest x-ray was unremarkable. Labs were fairly unremarkable. Patient had stress EKG done, showed normal sinus rhythm, no acute changes. Notably had TTE done on 04/30/2023, showed EF of 60%, stage I diastolic dysfunction, no regional wall motion abnormalities, no other acute abnormalities. Patient had good resolution of chest pain during admission. Okay for discharge after work-up was completed. Discharge diagnoses: ? Left arm numbness, slurred speech, CVA ruled out ? Chest pain, ACS ruled out ? GERD PCP follow-up: No specific follow-up needs at this time. Total clinical time spent by myself addressing the patient's discharge needs: 38 minutes. Physical Exam Const alert, oriented x3 and no apparent distress Constitutional Narrative: Sitting comfortably in bedside chair, obese, conversing normally, no acute distress. General Appearance: cooperative and comfortable HEENT normocephalic, head/scalp atraumatic, hearing grossly normal bilaterally, nasal mucous membranes and turbinates normal and moist oral mucous membranes Eyes PERRL, EOMs intact bilaterally and conjunctivae normal Neck full ROM, no lymphadenopathy and supple Lymph Lymphatic: no lymphadenopathy noted Chest inspection of chest normal Resp normal respiratory effort, normal air movement, no use of accessory muscles and clear to auscultation bilaterally Cardio regular rate, regular rhythm, no murmurs and peripheral pulses 2+ throughout GI normal to inspection, nondistended, normoactive bowel sounds, soft to palpation, non-tender and non-distended Back/Spine normal ROM Extremity normal to inspection, full ROM and no pedal edema Skin no rashes or lesions noted Neuro Neuro Narrative: No neurologic deficits noted. Psych mental status grossly normal Weight / BMI Weight Weight: 82 kg Body Mass Index (BMI) 35.3 ABG / Lab / Microbiology Data 06/22/23 04:25 06/22/23 04:25 Laboratory: Laboratory Results - last 24 hr 06/21/23 16:13: POC Glucose 162 H 06/21/23 16:16: WBC 6.6, RBC 4.52, Hgb 14.2, Hct 39.5, MCV 87.4, MCH 31.4, MCHC 35.9, RDW Std Deviation 40.7, RDW Coeff of Dontae 12.9, Plt Count 178, MPV 11.4, Immature Gran % (Auto) 0.300, Neut % (Auto) 55.8, Lymph % (Auto) 32.5, [place] % (Auto) 8.4, Eos % (Auto) 2.1, Baso % (Auto) 0.9, Absolute Neuts (auto) 3.7, Absolute Lymphs (auto) 2.16, Nucleated RBC % 0, Sodium 139, Potassium 3.2 L, Chloride 109 H, Carbon Dioxide 25.0, Anion Gap 5, BUN 10, Creatinine 0.80, Estim Creat Clear Calc 63.79, Est GFR (MDRD) Af Amer 99, Est GFR (MDRD) Non-Af 82, BUN/Creatinine Ratio 12.4, Glucose 144 H, Hemoglobin A1c 4.7, Calcium 8.8, Magnesium 1.9, Troponin I High Sens < 3 L 06/21/23 17:55: Urine Color Yellow, Urine Clarity Cloudy, Urine pH 6.0, Ur Specific [place] 1.025, Urine Protein Negative, Urine Glucose (UA) Normal, Urine Ketones Negative, Urine Occult Blood Negative, Urine Nitrite Negative, Urine Bilirubin Negative, Urine Urobilinogen 8 H, Ur Leukocyte Esterase 25 H, Urine RBC 0 SEEN, Urine WBC 0-5 SEEN, Ur Squamous Epith Cells 5-10 SEEN, Calcium Oxalate Crystal 1+, Amorphous Sediment 2+, Urine Bacteria 1+, Urine Mucus 0 SEEN, Urine Opiates Screen Cancelled, Urine Methadone Screen Cancelled, Ur Barbiturates Screen Cancelled, Ur Phencyclidine Scrn Cancelled, Ur Amphetamines Screen Cancelled, MDMA (Ecstasy) Screen Cancelled, U Benzodiazepines Scrn Cancelled, Urine Cocaine Screen Cancelled, U Cannabinoids Screen Cancelled, Ur Drug Screen Comment Cancelled 06/21/23 18:30: Urine Opiates Screen NEGATIVE, Urine Methadone Screen NEGATIVE, Ur Barbiturates Screen NEGATIVE, Ur Phencyclidine Scrn NEGATIVE, Ur Amphetamines Screen NEGATIVE, MDMA (Ecstasy) Screen NEGATIVE, U Benzodiazepines Scrn NEGATIVE, Urine Cocaine Screen NEGATIVE, U Cannabinoids Screen NEGATIVE, Ur Drug Screen Comment 06/21/23 20:00: Troponin I High Sens < 3 L 06/22/23 04:25: WBC 5.7, RBC 4.33, Hgb 13.3, Hct 38.4, MCV 88.7, MCH 30.7, MCHC 34.6, RDW Std Deviation 40.9, RDW Coeff of Dontae 12.7, Plt Count 166, MPV 11.3, Immature Gran % (Auto) 0.200, Neut % (Auto) 61.0, Lymph % (Auto) 26.4, [place] % (Auto) 9.4, Eos % (Auto) 2.1, Baso % (Auto) 0.9, Absolute Neuts (auto) 3.5, Absolute Lymphs (auto) 1.51, Nucleated RBC % 0, Sodium 140, Potassium 3.7, Chloride 109 H, Carbon Dioxide 26.0, Anion Gap 5, BUN 9, Creatinine 0.79, Estim Creat Clear Calc 64.59, Est GFR (MDRD) Af Amer 101, Est GFR (MDRD) Non-Af 84, BUN/Creatinine Ratio 11.4, Glucose 123 H, Calcium 8.3 L, Triglycerides 167, Cholesterol 130, LDL Cholesterol 70, VLDL Cholesterol 33, HDL Cholesterol 27 L Radiography Diagnostic Testing: Radiology Impression Brain CT 06/21/23 16:19 IMPRESSION: Chronic involutional changes of the brain. Electronically Signed: Beckie Dumont MD at 17:04 EDT Reading Location ID and State: [place] / Tel , Service support , Chest X-Ray 06/21/23 16:35 IMPRESSION: No radiographic evidence of acute cardiopulmonary disease. Electronically Signed: Beckie Dumont MD at 17:33 EDT Reading Location ID and State: [place] / Tel , Service support , Brain MRI 06/22/23 09:30 IMPRESSION: Normal MRI brain without intravenous contrast. Electronically Signed: Ho Mitchell MD at 12:42 EDT , Head MRA 06/22/23 09:30 IMPRESSION: Normal MRA head. Electronically Signed: Ho Mitchell MD at 12:37 EDT , Neck MRA 06/22/23 09:30 IMPRESSION: 1. Normal bilateral cervical carotid and vertebral arteries. 2. Normal aortic arch and origins of the great vessels. Electronically Signed: Ho Mitchell MD at 12:33 EDT , D/C Instructions Discharge Diet: No restrictions Weight Bearing Status: Full weight bearing Pending Tests Upon Discharge: None Please Follow Up With: Juan Garcia MD When: As needed Meaningful Use Info Meaningful Use Diagnoses (Choose all that apply): None applicable Discharge Plan Admission Admit Date/Time: 06/21/23 17:55 Primary Reason for Your Visit: Chest pain and strokelike symptoms, ACS and CVA rule out Attending Provider: Thomas Barbosa Primary Care Provider: Juan Garcia Consulting Providers: Bre Bolden Instructions Additional Instructions / Restrictions: Please start taking aspirin and atorvastatin daily on discharge. Continue all other home medications as normal. Follow-up with your primary care doctor as needed. Discharge Orders/Prescriptions Prescriptions: New aspirin 81 mg Tablet,Chewable 81 mg PO BREAKFAST 90 Days Qty: 90 0RF atorvastatin 40 mg tablet 40 mg PO QHS 90 Days Qty: 90 0RF Continued omeprazole 40 MG capsule,delayed release(DR/EC) 40 mg PO DAILY Patient Comments: take 1 capsule by mouth once daily albuterol sulfate [Ventolin HFA] 1 INHALER inhaler 1 - 2 puff inhalation Q4H PRN PRN (Reason: Asthma) epinephrine 0.3 MG syringe 0.3 mg subcut X1 PRN (Reason: allergy) cetirizine 5 mg tablet 5 mg PO DAILY Patient Comments: take 1 tablet by mouth once daily fluticasone propionate 50 mcg/actuation spray,suspension 2 spray INTRANASAL DAILY Patient Comments: instill 2 sprays into each nostril once daily Rinse mouth after use Referrals / Follow Up: Juan Garcia MD [Primary Care Provider] - Disposition Disposition (needs filled in before D/C Order can be placed): Home, Self Care Charges/Coding Visit Charges Inpatient E&M: 10410 Disch Hosp >30min
--- NOTE | 2023-06-22 15:14 | CASEMGMT ---
Patient has order for discharge. RN CM in to discuss discharge needs with patient. Patient declined therapy at discharge and further needs. JAQUELINE SAENZ instructed patient and family member to follow up with PCP should they reconsider outpatient therapy, patient voiced understanding. Patient had no further questions or concerns at this time.
== END 2023-06-22 15:00 | disposition home or self-care (01) ==
LOC: ED 17:51 → PCU 18:04
PROVIDERS: Admitting Provider Student in an Organized Health Care Education/Training Program; Emergency Provider Emergency Medicine; PCP Family Medicine; Visit Provider Hospitalist
DX: R07.89 Other chest pain (principal); F41.9 Anxiety disorder, unspecified; Z87.891 Personal history of nicotine dependence; R47.81 Slurred speech; I10 Essential (primary) hypertension; K21.9 Gastro-esophageal reflux disease without esophagitis; J45.909 Unspecified asthma, uncomplicated; Z79.899 Other long term (current) drug therapy; R94.31 Abnormal electrocardiogram [ECG] [EKG]; R20.0 Anesthesia of skin; F32.A Depression, unspecified; R29.90 Unspecified symptoms and signs involving the nervous system
CPT/HCPCS: 36415; 70450; 70544; 70549; 70551; 71045; 80048; 80061; 80307; 81001; 82962; 83036; 83735; 84484; 85025; 93005; 94762; 97162; 97166; 99221; 99285; A9575; A4216; G0378

== ENCOUNTER 2024-01-28 03:29 | Emergency (ER) | payer MEDICARE, MEDICAID, SELFPAY ==
[2024-01-28 03:30] VITALS: BP 121/88; PULSE 88; RESP 12; TEMP 36.6; O2SAT 98
[2024-01-28 03:35] VITALS: BP 121/88; PULSE 88; RESP 12; O2SAT 98
[2024-01-28 03:55] VITALS: BP 136/80; PULSE 91; RESP 16; O2SAT 96
--- NOTE | 2024-01-28 03:55 | EKG12_ITS ---
Test Reason : SOB Blood Pressure : / mmHG Vent. Rate : 092 BPM Atrial Rate : 092 BPM P-R Int : 148 ms QRS Dur : 086 ms QT Int : 368 ms P-R-T Axes : 069 084 059 degrees QTc Int : 455 ms Normal sinus rhythm Normal ECG When compared with ECG of 21-JUN-2023 16:31, Questionable change in QRS axis Confirmed by MARIA LUISA SHEETS MD ([id number]), editor house organ SARAH GAUTHIER ([id number]) on 01/30/2024 9:20:01 AM Referred By: Confirmed By:MARIA LUISA SHEETS MD
--- NOTE | 2024-01-28 03:55 | RAD_ITS ---
EXAM: XR CHEST, 1 VIEW CLINICAL INDICATION: Stroke TECHNIQUE: Frontal view of the chest. COMPARISON: No relevant prior studies available. FINDINGS: LUNGS AND PLEURAL SPACES: Unremarkable. No consolidation or edema. No pneumothorax. No effusion. HEART: Unremarkable. Cardiac silhouette not enlarged. MEDIASTINUM: Central airways and mediastinal contour are unremarkable. BONES/JOINTS: Unremarkable. No acute fracture. SOFT TISSUES: Unremarkable. RAD/Chest 1 View (Portable) IMPRESSION: No radiographic evidence of acute cardiopulmonary disease. Electronically Signed: Jonny Andrade MD at 4:31 EDT ,
--- NOTE | 2024-01-28 03:58 | CT_ITS ---
EXAM: CT HEAD WITHOUT INTRAVENOUS CONTRAST CLINICAL INDICATION: Neuro deficit, acute, stroke suspected TECHNIQUE: Multiple axial images were obtained of the head without intravenous contrast. This CT exam was performed using one or more of the following dose reduction techniques: automated exposure control, adjustment of the mA and/or kV according to patient size, and/or use of iterative reconstruction technique. COMPARISON: No relevant prior studies available. FINDINGS: BRAIN AND EXTRA-AXIAL SPACES: Unremarkable. No intra- or extra-axial hemorrhage. No evidence of acute infarct. No intracranial mass or mass effect. There is preservation of the ochoa/white matter interface. Posterior fossa structures are unremarkable. Ventricles are appropriate for age. No hydrocephalus. Basal cisterns are patent. BONES/JOINTS: Unremarkable. No discrete lytic or blastic abnormalities. SINUSES: Unremarkable as visualized. Clear. MASTOID AIR CELLS: Unremarkable. Clear. ORBITS: Visualized globes, extraocular muscles, optic nerves and retrobulbar fat appear unremarkable. CT/STROKE Brain/Head without Cont IMPRESSION: Negative head/brain CT without intravenous contrast. ASSESSMENT: ASPECTS ([place] Stroke Program Early CT Score) is 10. N.B. : The above Results were Read Back by Jonny Andrade MD to Prashant Soria DO, and understanding confirmed on 01/28/2024 04:11:47 (ET). Electronically Signed: Jonny Andrade MD at 4:07 EDT ,
--- NOTE | 2024-01-28 03:59 | CT_ITS ---
We are attempting to reach an attending provider to discuss findings. An addendum with communication details will be sent when the communication is complete. EXAM: CT ANGIOGRAPHY HEAD AND NECK WITH INTRAVENOUS CONTRAST CLINICAL INDICATION: Neuro deficit, acute, stroke suspected TECHNIQUE: [place]/head and neck CT angiography protocol performed with intravenous contrast. This CT exam was performed using one or more of the following dose reduction techniques: automated exposure control, adjustment of the mA and/or kV according to patient size, and/or use of iterative reconstruction technique. MIP reconstructed images were created and reviewed. CONTRAST: 100 cc of Isovue-370 IV. RADIATION DOSE: CTDIvol = 24.41 mGy, DLP = 737.11 mGy-cm COMPARISON: No relevant prior studies available. FINDINGS: HEAD: RIGHT ANTERIOR CEREBRAL ARTERY: Unremarkable. No occlusion or significant stenosis. Anterior communicating artery is present. No aneurysm. RIGHT MIDDLE CEREBRAL ARTERY: Unremarkable. No occlusion or significant stenosis. No aneurysm. RIGHT POSTERIOR CEREBRAL ARTERY: Unremarkable. No occlusion or significant stenosis. No aneurysm. RIGHT INTRACRANIAL INTERNAL CAROTID ARTERY: Unremarkable. No significant stenosis. No dissection or occlusion. RIGHT INTRACRANIAL VERTEBRAL ARTERY: Unremarkable. No significant stenosis. No dissection or occlusion. LEFT ANTERIOR CEREBRAL ARTERY: Unremarkable. No occlusion or significant stenosis. No aneurysm. LEFT MIDDLE CEREBRAL ARTERY: Unremarkable. No occlusion or significant stenosis. No aneurysm. LEFT POSTERIOR CEREBRAL ARTERY: Unremarkable. No occlusion or significant stenosis. No aneurysm. LEFT INTRACRANIAL INTERNAL CAROTID ARTERY: Unremarkable. No significant stenosis. No dissection or occlusion. LEFT INTRACRANIAL VERTEBRAL ARTERY: Unremarkable. No significant stenosis. No dissection or occlusion. BASILAR ARTERY: Unremarkable. No occlusion or significant stenosis. No aneurysm. OTHER VASCULATURE: No vascular malformation. NECK: RIGHT COMMON CAROTID ARTERY: Unremarkable. No significant stenosis. No dissection or occlusion. RIGHT EXTRACRANIAL INTERNAL CAROTID ARTERY: Unremarkable. No significant stenosis. No dissection or occlusion. RIGHT EXTERNAL CAROTID ARTERY: Unremarkable. No occlusion. RIGHT EXTRACRANIAL VERTEBRAL ARTERY: Unremarkable. No significant stenosis. No dissection or occlusion. LEFT COMMON CAROTID ARTERY: Unremarkable. No significant stenosis. No dissection or occlusion. LEFT EXTRACRANIAL INTERNAL CAROTID ARTERY: Unremarkable. No significant stenosis. No dissection or occlusion. LEFT EXTERNAL CAROTID ARTERY: Unremarkable. No occlusion. LEFT EXTRACRANIAL VERTEBRAL ARTERY: Unremarkable. No significant stenosis. No dissection or occlusion. BRACHIOCEPHALIC AND SUBCLAVIAN ARTERIES: Unremarkable as visualized. No occlusion or significant stenosis. LUNG APICES: Unremarkable as visualized. HEAD and NECK: BONES/JOINTS: Unremarkable. No discrete lytic or blastic abnormalities. SOFT TISSUES: Unremarkable. CAROTID STENOSIS REFERENCE USING NASCET CRITERIA: % ICA stenosis = (1 - narrowest ICA diameter/diameter of distal cervical ICA) x 100. Mild - <50% stenosis. Moderate - 50-69% stenosis. Severe - 70-94% stenosis. Near occlusion - 95-99% stenosis. Occluded - 100% stenosis. CT/STROKE CTA Head AND Neck W/Con IMPRESSION: Negative CTA carotid and CTA brain. Electronically Signed: Jonny Andrade MD at 4:30 EDT ,
[2024-01-28 04:00] VITALS: BMI 28.0
[2024-01-28 04:16] LABS: Absolute Lymphocyte Count 3.18 X10^3/uL (0.83-4.51); Basophil# 0.07 X10^3/uL; Basophil% 0.9 % (0-1); Eosinophils% 2.5 % (0-5); Hematocrit 42.2 % (37-47); Hemoglobin 14.7 g/dL (12.0-15.0); Lymphocyte # 3.18 X10^3/ul (0.83-4.51); Lymphocyte % 40.4 % (19-41); Mean Corp Hgb Conc 34.8 g/dL (32-36); Mean Corpuscular Hgb 29.9 pg (27.0-32.0); Mean Corpuscular Volume 85.9 fL (81-99); Mean Platelet Vol. 11.8 fl (6.2-12.0); Monocyte% 5.1 % (0-10); NRBC Flagged by Analyzer 0 % (0-5); Neutrophil # 4.01 X10^3/uL (2.7-7.7); Neutrophil % 50.8 % (47-70); Platelet Count 196 K/mm3 (150-450); RBC Distribution Width CV 12.8 % (11.6-14.6); RBC Distribution Width SD 39.5 fl (35.1-43.9); Red Blood Count 4.91 M/mm3 (4.2-5.4); White Blood Count 7.9 K/mm3 (4.4-11.0)
[2024-01-28 04:25] VITALS: BP 116/76; PULSE 88; RESP 20; O2SAT 97
[2024-01-28 04:25] LABS: International Normalized Ratio 1.1
[2024-01-28 04:26] LABS: Partial Thromboplast Time 27.2 Seconds (24.1-36.2)
[2024-01-28 04:29] LABS: Bedside Glucose 129 mg/dL (74-106)
[2024-01-28 04:30] VITALS: BP 129/81; PULSE 85; RESP 20; O2SAT 96
[2024-01-28 04:32] LABS: Anion Gap 9 (5-15); BUN 20 mg/dL (7-18); Calcium,Total 9.4 mg/dL (8.5-10.1); Chloride 105 mmol/L (98-107); EST Glomerular Filtration Rate 64 mL/min (>60); Est Glom Filt Rate - Afr Amer 77 mL/min (>60); Estimated Creatinine Clearance 66.85 ml/min; Glucose 119 mg/dL (74-106); Potassium 3.4 mmol/L (3.5-5.1); Sodium Level 140 mmol/L (136-145)
--- NOTE | 2024-01-28 05:18 | EX.ED.DYSGE1 ---
HPI History of Present Illness Chief Complaint: Shortness of Breath Informant: patient, spouse/S.O. and family Narrative Narrative: Patient is a 48-year-old female with past medical history of anxiety bipolar disorder asthma hypertension and conversion disorder. Patient complaining of some left arm pain and shortness of breath this evening and they state that her speech has been slurred and delayed. They report she had similar event in June 2023 and had to be admitted at that time. Therefore with return of symptoms there was concern for need for potential admission and she was brought into the hospital for evaluation [facility] Medical History (Updated 01/29/24 @ 01:[address] Prashant Soria, DO) Anemia Anxiety Asthma Bipolar disorder delivery delivered Depression Former smoker Gastric reflux History of cocaine use History of echocardiogram History of ulceration Hypertension Injury of back Lung nodules Migraine headache Myocardial infarct Seizures Smoker Wears glasses Wears hearing aid Wears hearing aid in both ears Home Medications omeprazole 40 mg capsule,delayed release 40 mg PO DAILY 06/04/17 [History Last Taken Unknown] albuterol sulfate 90 mcg/actuation aerosol inhaler (Ventolin HFA) 1 - 2 puff inhalation Q4H PRN PRN Asthma 09/13/17 [History Last Taken Unknown] epinephrine 0.3 mg/0.3 mL injection, auto-injector 0.3 mg subcut X1 PRN allergy 09/30/18 [History Last Taken Unknown] cetirizine 5 mg tablet 5 mg PO DAILY 01/22/22 [History Last Taken Unknown] aspirin 81 mg chewable tablet 81 mg PO BREAKFAST 90 days #90 tabs 06/22/23 [Rx Last Taken Unknown] atorvastatin 40 mg tablet 40 mg PO QHS 90 days #90 tabs 06/22/23 [Rx Last Taken Unknown] Allergy/AdvReac Type Severity Reaction Status Date / Time Penicillins Allergy Rash Verified 01/28/24 03:37 phenazopyridine Allergy Swelling Verified 01/28/24 03:37 [From Pyridium] Seasonal Allergies: Uncoded Allergy Other Verified 01/28/24 03:37 sertraline Allergy Rash Verified 01/28/24 03:37 Milk Containing Products AdvReac Mild Abd Verified 01/28/24 03:37 (Dairy) cramps/diarrhea bee venom protein (honey bee) AdvReac Anaphylaxis Verified 01/28/24 03:37 metronidazole [From Flagyl] AdvReac Rash Verified 01/28/24 03:37 chocolate Allergy Intermediate Hives Uncoded 06/21/23 20:55 Family History Mother Heart disease Breast cancer CVA (cerebral vascular accident) Grandmother CVA (cerebral vascular accident) Father Heart disease Surgical History History of History of cholecystectomy History of esophagogastroduodenoscopy (EGD) Hx laparoscopic cholecystectomy Social History Smoking Status: Former smoker alcohol intake: current alcohol intake frequency: holidays/special occasions only Alcohol type: beer substance use type: former substance user ROS ROS ED Constitutional Constitutional ED: Denies chills or fever(s) Eyes Eyes: Denies change in vision ENT ENT ED: Denies sore throat Cardiovascular Cardiovascular: Denies chest pain Respiratory/Chest Respiratory/Chest: Reports dyspnea; Denies cough Gastrointestinal Gastrointestinal: Denies abdominal pain, diarrhea, nausea or vomiting Genitourinary Genitourinary ED: Denies dysuria Musculoskeletal Musculoskeletal: Reports other Details: Positive arm pain Integumentary Denies rash Neurologic Neurologic: Denies headache(s) Psychiatric Psychiatric: Reports anxiety Hematologic/Lymphatic Hematologic/Lymphatic: Denies easy bleeding or easy bruising EXAM Physical Exam Const Vital Signs: 01/28/24 03:30 01/28/24 03:35 01/28/24 04:07 Temperature 97.8 F Temperature Source Temporal Pulse Rate 88 Respiratory Rate 12 Respiratory Effort Normal Non-Labored Respiratory Depth Normal Respiratory Pattern Normal Blood Pressure 121/88 H Blood Pressure Mean 99 Pulse Ox 98 Oxygen Delivery Method Room Air Room Air Room Air 01/28/24 03:35 01/28/24 03:55 01/28/24 04:25 Temperature Temperature Source Pulse Rate 88 91 88 Respiratory Rate 12 16 20 H Respiratory Effort Respiratory Depth Respiratory Pattern Blood Pressure 121/88 H 136/80 H 116/76 Blood Pressure Mean 99 98 89 Pulse Ox 98 96 97 Oxygen Delivery Method Room Air Room Air Room Air 01/28/24 04:30 01/28/24 05:40 Temperature 97.8 F Temperature Source Pulse Rate 85 84 Respiratory Rate 20 H 19 H Respiratory Effort Respiratory Depth Respiratory Pattern Blood Pressure 129/81 H 140/78 H Blood Pressure Mean 97 98 Pulse Ox 96 98 Oxygen Delivery Method Room Air Positive well nourished, well developed and obese General Appearance ED: well developed; Negative for pallor Nutritional Appearance: obese HEENT Reports moist mucous membranes HEENT Narrative: No tongue or lip swelling no oral lesions no airway edema or compromise Eyes PERRL and EOMs intact bilaterally General Eye ED: Negative for pale conjunctiva or scleral icterus Neck supple and no JVD Neck Narrative: No nuchal rigidity or meningeal signs noted Resp normal respiratory effort and clear to auscultation bilaterally Resp Narrative: Breath sounds are diminished throughout but overall clear to auscultation without nasal flaring retractions tachypnea or accessory muscle use Cardio regular rate and regular rhythm Rate: other Other Details: Heart is regular rate and rhythm without murmurs rubs or gallops No carotid bruit Radial and carotid pulses equal and symmetric GI normal to inspection, nondistended, normoactive bowel sounds, non-tender, non-distended and no masses GI Narrative: No voluntary guarding or rigidity or pulsatile mass Auscultation: normoactive bowel sounds Palpation: soft Back/Spine no CVA tenderness Extremity normal to inspection Extremity Narrative: No asymmetric edema no pitting edema negative Homans' sign bilaterally Neuro oriented x3 and CN's II-XII intact bilaterally Neuro Narrative: Patient is awake alert and oriented to person place and time. GCS is 15. She is slow to respond but is appropriate. NIH stroke scale score of 0. Sensorium / Orientation: alert Psych Psych Narrative: Patient has a depressed/flat affect Skin no rashes or lesions noted and no wounds General Skin Exam: Negative for jaundice or pallor MDM MDM MDM Narrative Medical decision making narrative: Patient arrived to the ER with stable vitals and overall a nonfocal neurologic exam. Chart review revealed that she has similar symptoms in June 2023 and at that time got admitted with an MRI and MRI which were negative indicating she had conversion disorder. As patient however was slow to respond and occasionally slurring speech the decision was made to activate a stroke alert to ensure that this was not an atypical presentation for an acute CVA. CT and CTA were obtained which revealed no acute finding. She was evaluated by the teleneurologist and they agree that symptoms are not consistent with stroke there is no need for TNK and that symptoms are most likely more along the lines of conversion disorder than acute neurologic process. Patient blood work was obtained as well as shortness of breath could be related to acute blood loss anemia or electrolyte abnormality or acute kidney injury. Labs revealed no clinically significant findings and chest x-ray revealed no acute lung pathology. Patient was able to ambulate with a steady gait in the ER and her neurologic exam remained normal. Therefore at this time his CT/CTA are negative she had previous MRI and MRAs which revealed no neurologic event and her workup in the ER is normal I do not feel need for admission and she is otherwise safe for discharge History & Record Review Discussion w/independent historian: Patient and Family Lab Data Attestation: I reviewed the patient's lab results. Labs: Laboratory Results - last 24 hr 01/28/24 01/28/24 03:35 03:50 WBC 7.9 RBC 4.91 Hgb 14.7 Hct 42.2 MCV 85.9 MCH 29.9 MCHC 34.8 RDW Std Deviation 39.5 RDW Coeff of Dontae 12.8 Plt Count 196 MPV 11.8 Immature Gran % (Auto) 0.300 Neut % (Auto) 50.8 Lymph % (Auto) 40.4 [place] % (Auto) 5.1 Eos % (Auto) 2.5 Baso % (Auto) 0.9 Absolute Neuts (auto) 4.0 Absolute Lymphs (auto) 3.18 Nucleated RBC % 0 PT 14.0 INR 1.1 APTT 27.2 Sodium 140 Potassium 3.4 L Chloride 105 Carbon Dioxide 26.0 Anion Gap 9 BUN 20 H Creatinine 1.00 Estim Creat Clear Calc 66.85 Est GFR (MDRD) Af Amer 77 Est GFR (MDRD) Non-Af 64 BUN/Creatinine Ratio 20.0 Glucose 119 H Calcium 9.4 POC Glucose 129 H Radiography Diagnostic Testing: Clinical Impression(s) from Imaging Studies Chest X-Ray 01/28/24 03:55 IMPRESSION: No radiographic evidence of acute cardiopulmonary disease. Electronically Signed: Jonny Andrade MD at 4:31 EDT , Brain CT 01/28/24 03:58 IMPRESSION: Negative head/brain CT without intravenous contrast. ASSESSMENT: ASPECTS ([place] Stroke Program Early CT Score) is 10. N.B. : The above Results were Read Back by Jonny Andrade MD to Prashant Soria DO, and understanding confirmed on 01/28/2024 04:11:47 (ET). Electronically Signed: Jonny Andrade MD at 4:07 EDT , Head/Neck CTA 01/28/24 03:59 IMPRESSION: Negative CTA carotid and CTA brain. Electronically Signed: Jonny Andrade MD at 4:30 EDT , ADDENDUM: 01/28/24 0447 IMPRESSION: Negative CTA carotid and CTA brain. N.B. : The above Results were Read Back by Jonny Andrade MD to Prashant Soria DO, and understanding confirmed on 01/28/2024 04:40:25 (ET). Electronically Signed: Jonny Andrade MD at 4:30 EDT , ADDENDUM: 01/28/24 1249 IMPRESSION: Negative CTA carotid and CTA brain. N.B. : The above Results were Read Back by Jonny Andrade MD to Prashant Soria DO, and understanding confirmed on 01/28/2024 04:40:25 (ET). Electronically Signed: Jonny Andrade MD at 4:30 EDT , Chest x-ray as interpreted by the emergency medicine physician reveals no acute infiltrate pneumothorax or pleural effusion Discharge Plan Triage Chief Complaint: Shortness of Breath ED Provider: Prashant Soria Dx/Rx/DC Orders Clinical Impression: Conversion disorder, Bipolar disorder, Hypertension Instructions: ED Conversion Reaction Prescriptions: No Action omeprazole 40 MG capsule,delayed release(DR/EC) 40 mg PO DAILY Patient Comments: take 1 capsule by mouth once daily albuterol sulfate [Ventolin HFA] 1 INHALER inhaler 1 - 2 puff inhalation Q4H PRN PRN (Reason: Asthma) epinephrine 0.3 MG syringe 0.3 mg subcut X1 PRN (Reason: allergy) cetirizine 5 mg tablet 5 mg PO DAILY Patient Comments: take 1 tablet by mouth once daily aspirin 81 mg Tablet,Chewable 81 mg PO BREAKFAST 90 Days Qty: 90 0RF atorvastatin 40 mg tablet 40 mg PO QHS 90 Days Qty: 90 0RF Primary Care Provider: Juan Garcia Referrals: Juan Garcia MD [Primary Care Provider] - Disposition Disposition: Home, Self Care Discharge Date/Time: 01/28/24 05:40
[2024-01-28 05:40] VITALS: BP 140/78; PULSE 84; RESP 19; TEMP 36.6; O2SAT 98
== END 2024-01-28 05:40 | disposition home or self-care (01) ==
PROVIDERS: Emergency Provider Emergency Medicine; PCP Family Medicine; Visit Provider Emergency Medicine
DX: F31.9 Bipolar disorder, unspecified (principal); I10 Essential (primary) hypertension; E66.9 Obesity, unspecified; Z79.51 Long term (current) use of inhaled steroids; Z79.82 Long term (current) use of aspirin; Z79.899 Other long term (current) drug therapy; Z87.891 Personal history of nicotine dependence
CPT/HCPCS: 70450; 70496; 70498; 71045; 80048; 82962; 85025; 85610; 85730; 93005; 99285; Q9967; A4216

== ENCOUNTER 2024-06-09 14:15 | Emergency (ER) | payer MEDICARE, MEDICAID, SELFPAY ==
[2024-06-09 14:17] VITALS: BP 128/92; PULSE 77; RESP 18; TEMP 36.1; O2SAT 97
[2024-06-09 15:03] VITALS: BMI 34.2
--- NOTE | 2024-06-09 15:59 | EDS_ITS ---
HPI History of Present Illness Chief Complaint: Headache Informant: patient Onset/Context/Timing Onset: Days Context: Gradual Timing: Intermittent Quality -Headache: Positive for Other (Pressure) Location: Generalized Worsened by: Light Relieved by: Sleeping Associated Symptoms/Injury Associated Symptoms: Positive for Fever (Subjective), Blurred Vision and Photophobia; Negative for Nausea, Vomiting, Sore Throat, Sinus Pressure, Numbness, Tingling, Preceding Aura or Visual Loss Injury - WELCH: Negative for Direct Trauma, Fall or Assault Narrative Narrative: Patient presents with a headache that has been intermittent for the past several days. Patient states it gradually gets worse. Patient describes it as a pressure and tightness around her head. Patient states it is diffuse across her entire head. Patient states it is worse with lights. Patient states it is better when she is able to sleep. Patient admits to some blurry vision. Patient states she felt like she had a fever today but did not take her temperature. The patient denies any paresthesias or weakness. Patient denies any scotoma. Patient states that her primary care physician referred to the emergency department for possible mass. [facility] Medical History Wears hearing aid in both ears Bipolar disorder Former smoker Myocardial infarct Lung nodules History of cocaine use Wears hearing aid Wears glasses Depression Anxiety Anemia Injury of back Migraine headache Seizures History of ulceration Gastric reflux Smoker History of echocardiogram Hypertension delivery delivered Asthma Home Medications ?Medication ?Instructions ?Recorded ?Last Taken ?Type omeprazole 40 mg capsule,delayed 40 mg PO DAILY 06/04/17 Unknown History release albuterol sulfate 90 mcg/actuation 1 - 2 puff inhalation Q4H PRN PRN 09/13/17 Unknown History aerosol inhaler (Ventolin HFA) Asthma epinephrine 0.3 mg/0.3 mL 0.3 mg subcut X1 PRN allergy 09/30/18 Unknown History injection, auto-injector cetirizine 5 mg tablet 5 mg PO DAILY 01/22/22 Unknown History aspirin 81 mg chewable tablet 81 mg PO BREAKFAST 90 days #90 tabs 06/22/23 Unknown Rx atorvastatin 40 mg tablet 40 mg PO QHS 90 days #90 tabs 06/22/23 Unknown Rx Allergy/AdvReac Type Severity Reaction Status Date / Time Penicillins Allergy Rash Verified 06/09/24 14:16 phenazopyridine (From Allergy Swelling Verified 06/09/24 14:16 Pyridium) Seasonal Allergies: Uncoded Allergy Other Verified 06/09/24 14:16 sertraline Allergy Rash Verified 06/09/24 14:16 Milk Containing Products AdvReac Mild Abd Verified 06/09/24 14:16 (Dairy) cramps/diarrhea bee venom protein (honey bee) AdvReac Anaphylaxis Verified 06/09/24 14:16 metronidazole (From Flagyl) AdvReac Rash Verified 06/09/24 14:16 chocolate Allergy Intermediate Hives Uncoded 06/21/23 20:55 Family History Mother Heart disease Breast cancer CVA (cerebral vascular accident) Grandmother CVA (cerebral vascular accident) Father Heart disease Surgical History History of History of cholecystectomy History of esophagogastroduodenoscopy (EGD) Hx laparoscopic cholecystectomy Social History Smoking Status: Former smoker alcohol intake: current alcohol intake frequency: holidays/special occasions only Alcohol type: beer substance use type: former substance user ROS ROS ED Constitutional Constitutional ED: Reports fever(s) and subjective; Denies chills Eyes Eyes: Reports blurry vision; Denies diplopia ENT ENT ED: Denies rhinorrhea or sore throat Cardiovascular Cardiovascular: Denies chest pain or palpitations Respiratory/Chest Respiratory/Chest: Denies cough or dyspnea Gastrointestinal Gastrointestinal: Denies nausea or vomiting Genitourinary Genitourinary ED: Denies dysuria or hematuria Musculoskeletal Musculoskeletal: Reports neck pain; Denies back pain Integumentary Denies abscess or rash Neurologic Neurologic: Reports headache(s); Denies weakness Allergic/Immunologic Allergic/Immunologic ED: Denies mouth swelling or urticaria EXAM Physical Exam Const Vital Signs: 06/09/24 14:17 06/09/24 16:41 06/09/24 18:00 Temperature 97 F L Temperature Source Temporal Pulse Rate 77 78 87 Respiratory Rate 18 16 16 Blood Pressure 128/92 H 145/85 H Blood Pressure Mean 104 105 Pulse Ox 97 99 99 Oxygen Delivery Method Room Air Positive well nourished and well developed General Appearance ED: well developed and NAD HEENT Reports normocephalic atraumatic Neck supple and no JVD Resp normal respiratory effort and clear to auscultation bilaterally Cardio regular rate and regular rhythm GI non-tender and non-distended Extremity normal to inspection and full ROM Neuro oriented x3, CN's II-XII intact bilaterally and no sensory deficits noted [place] Coma Scale: document GCS findings Spontaneous Obeys Commands Oriented 15 Sensorium / Orientation: awake and alert Motor Exam: strength 5/5 throughout Psych mental status grossly normal MDM MDM MDM Narrative Medical decision making narrative: Differential diagnosis includes intracranial bleeding, mass, migraine headache, tension headache, and cluster headache. CT scan of the brain will be obtained to assess for intracranial bleeding and mass. Radiography Diagnostic Testing: Clinical Impression(s) from Imaging Studies Brain CT 06/09/24 15:59 IMPRESSION: Normal unenhanced CT scan of the brain. Electronically Signed: Juan Sheehan MD at 17:37 EDT , CT scan of the brain was obtained. There is no acute intracranial abnormality. This was interpreted by the radiologist and was also independently reviewed by myself. Treatment and Re-Evaluation Narrative: Patient was given IV fluids, Reglan, and Benadryl. Patient had minimal improvement with this. Patient was given a dose of Imitrex and Toradol. Patient was feeling better after this. Patient was instructed to rest in a dark quiet room. Patient was instructed to follow-up with her primary care physician in 5 to 7 days. Patient understood and was agreeable with the plan. All qu estions were answered. Discharge Plan Triage Chief Complaint: Headache ED Provider: Riley Cyr Dx/Rx/DC Orders Clinical Impression: Headache, Elevated blood pressure reading Instructions: ED Headache Unspecified Prescriptions: No Action omeprazole 40 MG capsule,delayed release(DR/EC) 40 mg PO DAILY Patient Comments: take 1 capsule by mouth once daily albuterol sulfate [Ventolin HFA] 1 INHALER inhaler 1 - 2 puff inhalation Q4H PRN PRN (Reason: Asthma) epinephrine 0.3 MG syringe 0.3 mg subcut X1 PRN (Reason: allergy) cetirizine 5 mg tablet 5 mg PO DAILY Patient Comments: take 1 tablet by mouth once daily aspirin 81 mg Tablet,Chewable 81 mg PO BREAKFAST 90 Days Qty: 90 0RF atorvastatin 40 mg tablet 40 mg PO QHS 90 Days Qty: 90 0RF Primary Care Provider: Juan Garcia Referrals: Juan Garcia MD [Primary Care Provider] - 3-5 Days Print Language: K[place] Disposition Disposition: Home, Self Care
--- NOTE | 2024-06-09 15:59 | CT_ITS ---
STUDY: CT BRAIN WITHOUT CONTRAST REASON FOR EXAM: Female, 48 years old. Pain RADIATION DOSAGE (If Supplied By Facility): CTDIvol = ( 44.99 ) mGy, DLP = ( 745.49 ) mGycm TECHNIQUE: Transaxial CT imaging of the brain was performed without administration of intravenous contrast material. Individualized dose optimization techniques were used for this CT. COMPARISON: January 28, 2024. FINDINGS: Normal soft tissue structures. Normal calvarium. Normal size ventricles and extra-axial spaces for the patient''s age. Normal white matter tracts of the cerebral hemispheres. Normal basal ganglia and thalami. Normal brainstem. Normal cerebellum. There is no intracranial hemorrhage. There are no findings of an acute ischemic infarction. Normal visualized paranasal sinuses. No significant change since prior exam CT/Brain/Head without Contrast IMPRESSION: Normal unenhanced CT scan of the brain. Electronically Signed: Juan Sheehan MD at 17:37 EDT ,
[2024-06-09] MEDS: DiphenhydrAMINE 50 MG/ML Syringe 25 MG IV (16:40)
[2024-06-09] MEDS: Metoclopramide 10 MG/2 ML Vial IV (16:40)
[2024-06-09] MEDS: 0.9% Normal Saline (1000mL) 1,000 ML 999 ML IV (16:40)
[2024-06-09 16:41] VITALS: PULSE 78; RESP 16; O2SAT 99
[2024-06-09 18:00] VITALS: BP 145/85; PULSE 87; RESP 16; O2SAT 99
[2024-06-09] MEDS: Ketorolac 30 MG/ML Syringe IV (18:07)
[2024-06-09] MEDS: SUMAtriptan 6 MG/0.5 ML Vial SC (18:07)
--- NOTE | 2024-06-09 18:14 | ED.RN ---
patient wanted IV fluids stopped
[2024-06-09 20:43] VITALS: BP 102/76; PULSE 71; RESP 18; TEMP 36.1; O2SAT 98
== END 2024-06-09 20:45 | disposition home or self-care (01) ==
PROVIDERS: Emergency Provider Emergency Medicine; PCP Family Medicine; Visit Provider Emergency Medicine
DX: R51.9 Headache, unspecified (principal); R03.0 Elevated blood-pressure reading, without diagnosis of hypertension; I25.2 Old myocardial infarction; F41.9 Anxiety disorder, unspecified; F32.A Depression, unspecified; K21.9 Gastro-esophageal reflux disease without esophagitis; Z87.891 Personal history of nicotine dependence; Z79.51 Long term (current) use of inhaled steroids; Z79.82 Long term (current) use of aspirin; Z79.899 Other long term (current) drug therapy
CPT/HCPCS: 70450; 96361; 96374; 96375; 96376; 99283; J7030; A4216; J3030

== ENCOUNTER 2025-05-08 08:33 | Day surgery (SDC) | payer MEDICARE, MEDICAID, SELFPAY ==
--- NOTE | 2025-04-30 15:38 | PAT.ANESEVAL ---
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 When Was Last Pacemaker Check QUESTION #4 FULL TEXT: You/Your Family Experience fever (hyperthermia) with Anesthesia Last Oral Intake Last Oral intake: Last Oral Intake NPO since Meds taken in AM with sips of water? 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 Female Yes 04/30/25 15:25 HX of Motion Sickness No 04/30/25 15:25 HX of N/V After Surgery No 04/30/25 15:25 Non-Smoker Yes 04/30/25 15:25 Duration of Surgery greater No 04/30/25 15:25 than 60 minutes Number of Risk Factors 2 04/30/25 15:25 PONV Score Moderate Risk 04/30/25 15:25 Height & Weight Height & Weight: Anesthesia: Height & Weight Height 5 ft 06/09/24 14:17 Respiratory Assessment Respiratory Assessment - women's basketball coach: Respiratory Tract Infection Hx - women's basketball coach Hx Respiratory Tract Infection No 04/30/25 15:25 STOP Sleep Apnea STOP Sleep Apnea - women's basketball coach: STOP Sleep Apnea - women's basketball coach Hx Hypertension No 04/30/25 15:25 Hx Sleep Apnea No 04/30/25 15:25 CPAP BIPAP Do you snore loudly (louder No 04/30/25 15:25 than talking or can be heard Do you often feel tired/ No 04/30/25 15:25 fatigued/ sleepy during daytime? Has anyone observed you stop No 04/30/25 15:25 breathing during sleep? STOP Results Negative 04/30/25 15:25 QUESTION #5 FULL TEXT : Do you snore loudly (louder than talking or can be heard through closed doors)? 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 Specify any problems Hx of Preganancy in last 3 N/A 04/30/25 15:25 Months Nurse Filling Out Transfusion [facility] 04/30/25 15:25 & Questions: Date: 04/30/25 04/30/25 15:25 Time: 04/30/25 15:25 Patient unable to answer at this time (ie. 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: /Reproductive Hx- women's basketball coach Hx Now No 04/30/25 15:25 Gestational Age (in weeks): EDC: Hx Hx Para Hx Section SAB No 04/30/25 15:25 PFSH Medical History (Updated 04/30/25 @ 15:34 by Jennifer Jones) Post-menopausal High cholesterol GERD (gastroesophageal reflux disease) Cardiology follow-up encounter Wears hearing aid in both ears Bipolar disorder Former smoker Myocardial infarct Lung nodules History of cocaine use Wears hearing aid Wears glasses Depression Anxiety Anemia Injury of back Migraine headache Seizures History of ulceration Gastric reflux History of echocardiogram Hypertension delivery delivered Asthma Home Medications Medication Instructions Recorded Last Taken Type omeprazole 40 mg capsule,delayed 40 mg PO DAILY 06/04/17 Unknown History release albuterol sulfate 90 mcg/actuation 1 - 2 puff inhalation Q4H PRN PRN 09/13/17 Unknown History aerosol inhaler (Ventolin HFA) Asthma epinephrine 0.3 mg/0.3 mL 0.3 mg subcut X1 PRN allergy 09/30/18 Unknown History injection, auto-injector cetirizine 5 mg tablet 5 mg PO DAILY 01/22/22 Unknown History aspirin 81 mg chewable tablet 81 mg PO BREAKFAST 90 days #90 tabs 06/22/23 Unknown Rx atorvastatin 40 mg tablet 40 mg PO QHS 90 days #90 tabs 06/22/23 Unknown Rx amitriptyline 25 mg tablet 25 mg PO QHS 04/30/25 Unknown History potassium chloride 10 mEq 10 meq PO BID 04/30/25 Unknown History capsule,extended release valacyclovir 500 mg tablet 500 mg PO DAILY 04/30/25 Unknown History Allergy/AdvReac Type Severity Reaction Status Date / Time Penicillins Allergy Rash Verified 04/30/25 15:21 phenazopyridine (From Allergy Swelling Verified 04/30/25 15:21 Pyridium) Seasonal Allergies: Uncoded Allergy Other Verified 04/30/25 15:21 sertraline Allergy Rash Verified 04/30/25 15:21 chocolate AdvReac Severe Hives Verified 04/30/25 15:21 coconut AdvReac Severe Hives Verified 04/30/25 15:21 Milk Containing Products AdvReac Mild Abd Verified 04/30/25 15:21 (Dairy) cramps/diarrhea bee venom protein (honey bee) AdvReac Anaphylaxis Verified 04/30/25 15:21 metronidazole (From Flagyl) AdvReac Rash Verified 04/30/25 15:21 Family History Mother Heart disease Breast cancer CVA (cerebral vascular accident) Grandmother CVA (cerebral vascular accident) Father Heart disease Surgical History History of History of cholecystectomy History of esophagogastroduodenoscopy (EGD) Hx laparoscopic cholecystectomy Social History Smoking Status: Former smoker alcohol intake: current alcohol intake frequency: holidays/special occasions only Alcohol type: beer substance use type: former substance user Audit: Pertinent Findings Pertinent Findings EKG Perinent findings: 01/28/2024. Normal sinus rhythm Echo (EF%) pertinent findings: 04/30/2023. EF 60%. Stage I diastolic dysfunction Consult pertinent findings: Cardiology note 04/11/2023. She does appear to have mild mitral regurgitation. Clinically does not appear that she has significant mild regurgitation. Recommendation Anesthesia Recommendation Anesthesia recommendation: OPTIMIZED for anesthesia
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
[2025-05-08] VITALS (10 sets, daily range): BP systolic 102–135; BP diastolic 76–99; PULSE 75–88; RESP 16–18; TEMP 36.1–36.6; O2SAT 90–96; BMI 35.5
[2025-05-08] MEDS: Lactated Ringers 1,000 ML 15 ML IV (09:04)
--- NOTE | 2025-05-08 09:06 | PCM.PRE.AN2 ---
ASA Classification* ASA Classification ASA Classification: 3 Assessment & Plan Anesthesia* Anesthesia Assessment Anesthesia Assessment: Discussed sedation and/or anesthesia options, risks, benefits, and alternatives with patient/parents/legal guardian/POA. Questions invited. The patient/parents/legal guardian/POA seems to understand and agrees to proceed with anesthesia plan. Reviewed the physical assessment, medical history, allergy history and patient home medications list prior to surgery/procedure/anesthetic and documented any changes. Performed airway and anesthesia risk assessments. Anesthesia Type Anesthesia Type: MAC History Source History Obtained from:: Patient and Chart Anesthesia Focused Assessment* Temperature: 97 F Pulse Rate: 83 Blood Pressure: 122/86 Respiratory Rate: 16 Pulse Ox: 96 Oxygen Delivery Method: Room Air Airway Assessment Mouth opens: >3 cm Mallampati Score: III Teeth Condition: Chipped/Broken (lower and upper molars bilaterally. ) Neck Range of motion (ROM): Full ROM Labs Anesthesia Preop lab: CBC WBC 7.5 K/mm3 (4.4-11.0) 05/08/25 09:00 05/08/25 RBC 5.06 M/mm3 (4.2-5.4) 05/08/25 09:00 05/08/25 Hgb 15.3 g/dL (12.0-15.0) H 05/08/25 09:00 05/08/25 Hct 43.3 % (37-47) 05/08/25 09:00 05/08/25 Plt Count 197 K/mm3 (150-450) 05/08/25 09:00 05/08/25 CHEMISTRY Potassium 3.4 mmol/L (3.5-5.1) L 01/28/24 03:35 01/28/24 Sodium 140 mmol/L (136-145) 01/28/24 03:35 01/28/24 Magnesium 1.9 mg/dL (1.6-2.6) 06/21/23 16:16 06/21/23 BUN 20 mg/dL (7-18) H 01/28/24 03:35 01/28/24 Creatinine 1.00 mg/dL (0.55-1.02) 01/28/24 03:35 01/28/24 Glucose 119 mg/dL (74-106) H 01/28/24 03:35 01/28/24 POC Glucose 129 mg/dL (74-106) H 01/28/24 03:50 01/28/24 TSH 2.47 uIU/mL (0.358-3.74) 05/01/21 11:40 05/01/21 COAG PT 14.0 SECONDS (11.7-14.9) 01/28/24 03:35 01/28/24 Urine Test Negative Negative 12/22/13 02:25 12/22/13 Pre-Assessment Diagnosis/Proposed Procedure Planned Operative Procedure(s): HYSTEROSCOPY D&c Anesthesia History 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 When Was Last Pacemaker Check QUESTION #4 FULL TEXT: You/Your Family Experience fever (hyperthermia) with Anesthesia Any additional information?: No Last Oral Intake Last Oral intake: Last Oral Intake NPO since 00:00 05/08/25 09:00 Meds taken in AM with sips of Yes 05/08/25 09:00 water? 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 Female Yes 04/30/25 15:25 HX of Motion Sickness No 04/30/25 15:25 HX of N/V After Surgery No 04/30/25 15:25 Non-Smoker Yes 04/30/25 15:25 Duration of Surgery greater No 04/30/25 15:25 than 60 minutes Number of Risk Factors 2 04/30/25 15:25 PONV Score Moderate Risk 04/30/25 15:25 Any additional information?: No Height & Weight Height & Weight: Anesthesia: Height & Weight Height 5 ft 05/08/25 09:00 Weight: 82.554 kg 05/08/25 09:00 Body Mass Index (BMI) 35.5 05/08/25 09:00 Respiratory Assessment Respiratory Assessment - die finisher: Respiratory Tract Infection Hx - die finisher Hx Respiratory Tract Infection No 04/30/25 15:25 Any additional information?: No STOP Sleep Apnea STOP Sleep Apnea - die finisher: STOP Sleep Apnea - die finisher Hx Hypertension No 04/30/25 15:25 Hx Sleep Apnea No 04/30/25 15:25 CPAP BIPAP Do you snore loudly (louder No 04/30/25 15:25 than talking or can be heard Do you often feel tired/ No 04/30/25 15:25 fatigued/ sleepy during daytime? Has anyone observed you stop No 04/30/25 15:25 breathing during sleep? STOP Results Negative 04/30/25 15:25 QUESTION #5 FULL TEXT : Do you snore loudly (louder than talking or can be heard through closed doors)? 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 Specify any problems Hx of Preganancy in last 3 N/A 04/30/25 15:25 Months Nurse Filling Out Transfusion [facility] 04/30/25 15:25 & Questions: Date: 04/30/25 04/30/25 15:25 Time: 04/30/25 15:25 Patient unable to answer at this time (ie. confused, unrespo Any additional information?: No /Reproduction History /Reproductive History - die finisher: /Reproductive Hx- die finisher Hx Now No 04/30/25 15:25 Gestational Age (in weeks): EDC: Hx Hx Para Hx Section SAB No 04/30/25 15:25 Any additional information?: No Active Medications Active Medications: Current Medications Generic Name Dose Route Start Last Admin Trade Name Freq PRN Reason Stop Dose Admin Lactated Ringer's 1,000 mls @ 15 mls/hr 05/08/25 08:45 05/08/25 09:04 IV 15 mls/hr .Q48H ANNALISA Administration PFSH Medical History Post-menopausal High cholesterol GERD (gastroesophageal reflux disease) Cardiology follow-up encounter Wears hearing aid in both ears Bipolar disorder Former smoker Myocardial infarct Lung nodules History of cocaine use Wears hearing aid Wears glasses Depression Anxiety Anemia Injury of back Migraine headache Seizures History of ulceration Gastric reflux History of echocardiogram Hypertension delivery delivered Asthma Home Medications Medication Instructions Recorded Last Taken Type omeprazole 40 mg capsule,delayed 40 mg PO DAILY 06/04/17 05/08/25 History release albuterol sulfate 90 mcg/actuation 1 - 2 puff inhalation Q4H PRN PRN 09/13/17 Unknown History aerosol inhaler (Ventolin HFA) Asthma epinephrine 0.3 mg/0.3 mL 0.3 mg subcut X1 PRN allergy 09/30/18 Unknown History injection, auto-injector cetirizine 5 mg tablet 5 mg PO DAILY 01/22/22 Unknown History aspirin 81 mg chewable tablet 81 mg PO BREAKFAST 90 days #90 tabs 06/22/23 05/08/25 Rx atorvastatin 40 mg tablet 40 mg PO QHS 90 days #90 tabs 06/22/23 Unknown Rx amitriptyline 25 mg tablet 25 mg PO QHS 04/30/25 Unknown History potassium chloride 10 mEq 10 meq PO BID 04/30/25 Unknown History capsule,extended release valacyclovir 500 mg tablet 500 mg PO DAILY 04/30/25 Unknown History Allergy/AdvReac Type Severity Reaction Status Date / Time Penicillins Allergy Rash Verified 05/08/25 08:59 phenazopyridine (From Allergy Swelling Verified 05/08/25 08:59 Pyridium) Seasonal Allergies: Uncoded Allergy Other Verified 05/08/25 08:59 sertraline Allergy Rash Verified 05/08/25 08:59 chocolate AdvReac Severe Hives Verified 05/08/25 08:59 coconut AdvReac Severe Hives Verified 05/08/25 08:59 Milk Containing Products AdvReac Mild Abd Verified 05/08/25 08:59 (Dairy) cramps/diarrhea bee venom protein (honey bee) AdvReac Anaphylaxis Verified 05/08/25 08:59 metronidazole (From Flagyl) AdvReac Rash Verified 05/08/25 08:59 Family History Mother Heart disease Breast cancer CVA (cerebral vascular accident) Grandmother CVA (cerebral vascular accident) Father Heart disease Surgical History History of History of cholecystectomy History of esophagogastroduodenoscopy (EGD) Hx laparoscopic cholecystectomy Social History Smoking Status: Former smoker alcohol intake: current alcohol intake frequency: holidays/special occasions only Alcohol type: beer substance use type: former substance user Addt'l Information Additional Findings: DIOMEDE on right side, talk into left. Seizure history from medication (Patient unsure which one) >5 years ago, no seizures since. GERD- omeprazole (works well, took this morning, no current symptoms). Last used albuterol sunday night. Review of Systems (Anesthesia) ROS Narrative System reviewed and no additional complaints, except as documented.
--- NOTE | 2025-05-08 09:12 | DCINST_ITS ---
Discharge Instructions DC O2, CPAP, BIPAP needs Home O2 Discharge instructions: No Dressing / Incision May resume sexual activity in: 1 week Dressing / Incision Call your doctor if you observe: Fever of 101 or Higher, Inability to urinate, Using more than 1 pad per hour and Uncontrolled pain Follow Up Care Please Follow Up With: Emilie Lockhart MD When: I will call you with pathology results in 1-2 weeks, if you feel you need an appointment please call [phone] Test Results: Test results from this visit will be discussed in further detail at your follow- up appointment, if applicable. Discharge Plan Admission Attending Provider: Emilie Lockhart Primary Care Provider: Juan Garcia Instructions Print Language: Kazakh Discharge Orders/Prescriptions Prescriptions: No Action omeprazole 40 MG capsule,delayed release(DR/EC) 40 mg PO DAILY Patient Comments: take 1 capsule by mouth once daily albuterol sulfate [Ventolin HFA] 1 INHALER inhaler 1 - 2 puff inhalation Q4H PRN PRN (Reason: Asthma) epinephrine 0.3 MG syringe 0.3 mg subcut X1 PRN (Reason: allergy) cetirizine 5 mg tablet 5 mg PO DAILY Patient Comments: take 1 tablet by mouth once daily aspirin 81 mg Tablet,Chewable 81 mg PO BREAKFAST 90 Days Qty: 90 0RF atorvastatin 40 mg tablet 40 mg PO QHS 90 Days Qty: 90 0RF potassium chloride 10 mEq capsule, extended release 10 meq PO BID valacyclovir 500 mg tablet 500 mg PO DAILY amitriptyline 25 mg tablet 25 mg PO QHS Referrals / Follow Up: Juan Garcia MD [Primary Care Provider] - Disposition Disposition (needs filled in before D/C Order can be placed): Home, Self Care
[2025-05-08 09:14] LABS: Hematocrit 43.3 % (37-47); Hemoglobin 15.3 g/dL (12.0-15.0); Mean Corp Hgb Conc 35.3 g/dL (32-36); Mean Corpuscular Volume 85.6 fL (81-99); Mean Platelet Vol. 11.4 fl (6.2-12.0); Platelet Count 197 K/mm3 (150-450); RBC Distribution Width CV 12.5 % (11.6-14.6); RBC Distribution Width SD 38.4 fl (35.1-43.9); Red Blood Count 5.06 M/mm3 (4.2-5.4); White Blood Count 7.5 K/mm3 (4.4-11.0)
--- NOTE | 2025-05-08 09:30 | EMB_PTH ---
PATIENT: SONY MCGINNIS LOC: [facility] [place] U[place][id number] AGE/SX: 49/F ROOM: RE05/08/[address]: Dr. Emilie Lockhart, MDDOB: 1975 BED: DIS: 05/08/2025 SPEC #: [id number] RECD: 05/08/25 10:06 STATUS: CHEYANNE ROBYN #: [id number] IRMA: 05/08/25 09:[address]: Emilie Lockhart DEPT: SURGICAL PATHOLOGY RECD BY: Hunter Stubbs ENTERED: 05/08/25 11:21 SP TYPE: ENDOM BX/C OTHR DR: Dr. Juan Garcia MD Tissues: A - Endometrium, NOS Procedures: Surgery Specimen Level IV HEADER OPERATION: Hysteroscopy, D&C PRE-OP DIAGNOSIS: Thickened endometrium, stenotic cervix TISSUE SUBMITTED: A- Endometrial curettings MICROSCOPIC DIAGNOSIS A. Endometrium, "thickened endometrium and stenotic cervix", hysteroscopy, dilation and curettage: - Squamous cervical mucosa with reactive changes, hyperkeratosis, and focal koilocytosis suggestive of HPV-cytopathic effect - see note. - Endocervical mucosa with squamous metaplasia. - Negative for dysplasia. - No endometrium observed in these sections. Note: Recommend clinical correlation. No recent record of a pap test is identified in the EMR. MICROSCOPIC DESCRIPTION Slides are reviewed. GROSS DESCRIPTION A. Received in formalin labeled with the patient's name and date of . Designated as "endometrial curettings" is a 1.0 x 0.8 x 0.1 cm aggregate of pink-red flecks of tissue. Entirely submitted in 1 cassette. Entirety of the specimen may not survive processing. [place] 05/08/2025 CPT:70647
--- NOTE | 2025-05-08 09:42 | OP.PCM_ITS ---
Operative Report (Standard) Operative Information Date of Procedure: 05/08/25 Pre-Operative Diagnosis: thickened endometrium, Stenotic cervix Post-Operative Diagnosis: same Surgery/Procedure Performed: Hysteroscopy, D&C aircraft steel fabricator: No Type of Anesthesia: MAC RN Documented Start/Stop Times: Operation Date: 05/08/25 11:15 Case Time Into Pre-Op 05/08/25 08:41 Procedure Start Time: 09:37 Procedure Stop Time: 09:42 Select all DRAINS/GRAFTS/IMPLANTS that apply: None Estimated Blood Loss: <5cc Fluids Replaced: 500 Specimen collected: Yes Description of specimen(s) removed: endometrial curettings Description of surgery: After informed consent was obtained patient was taken to OR and placed in supine position. Anesthesia was given. patient was placed in yellow fin stirrups and prepped and draped in normal sterile fashion. bladder was drained with straight catheter. Weighted speculum placed in posterior fornix of vaginal, single tooth tenaculum was used to gently grasped anterior lip of cervix. Uterus was sounded to 7cm. Cervix was then gently dilated in an incremental fashion. Was adequate dilation was achieved the hysteroscope was inserted using Normal saline as the distention medium. Upon hysteroscopy there were no gross abnormalities. some fibriosis at fundal aspect - not able to penetrate past that area- per ultrasound uterus should be 12cm. At this time sharp curettage was performed which yielded scant amount of tissue. The tissue was then sent to pathology for examination. Hysteroscope was then replaced and cavity evaulated and intact Uterine cavity intact, no complications. At this time procedure was deemed complete. Tenaculum removed, speculum removed. Good hemostasis appreciated. Vaginal sweep was negative. Instrument and lap count correct x 2. I anticipate normal postoperative course. if no endometrial tissue present will consider sending to [facility] for further work up due to inability to pass scope or dilators past 7cm. Surgical Findings: fibroisis appearing tissue at fundal aspect .only able to sound uterus to 7cm Complications Complications: No Admit VTE Documentation VTE Present on Admission: Yes VTE Mechan Device Prophylaxis: SCD's VTE Pharm Prophylaxis ordered?: No Reason prophylaxis not ordered: Treatment Not Indicated
--- NOTE | 2025-05-08 09:51 | PCM.POST.ANE ---
Anesthesia: Postop Eval I Current Vital Signs Temperature: 97.1 F Pulse Rate: 87 Blood Pressure: 113/99 Respiratory Rate: 18 Pulse Ox: 93 Assessment Airway patent: Yes Spontaneous unlabored respirations: Yes nausea: No Vomiting: No Anesthesia Complication: No Fluid Hydration Crystalloid volume administer (ml): 500 Total IV fluid infused: 500 Progress Note Anesthesia document: Postop Eval 1 completed: Yes
--- NOTE | 2025-05-08 16:01 | POSTOPAN2_ITS ---
Anesthesia Postop Eval I Sum Postop Eval Completion status Anesthesia document: Postop Eval 1 completed: Yes Anesthesia Postop Eval I Summary Anesthesia Postop Eval I Summary: Anesthesia Postop Eval I: Assessment Summary Airway patent Yes 05/08/25 09:51 [email or web address] [email or web address] Spontaneous unlabored Yes 05/08/25 09:51 [email or web address] [email or web address] respirations Mental status nausea No 05/08/25 09:51 [email or web address] [email or web address] Vomiting No 05/08/25 09:51 [email or web address] [email or web address] Anesthesia Postop Eval I: Fluid Summary Crystalloid volume administer 500 05/08/25 09:51 [email or web address] [email or web address] (ml) Colloids volume administered ( ml) Blood Product volume administered (ml) Total IV fluid infused 500 05/08/25 09:51 [email or web address] [email or web address] Anesthesia Postop Eval I: Summary Notes Anesthesia Complication No 05/08/25 09:51 [email or web address] [email or web address] Anesthesia Complication Comment: Post-operative progress note Anesthesia: Postop Eval II Evaluation Mental status: Awake Pain Level: 1 nausea: No Vomiting: No
--- NOTE | 2025-05-08 16:01 | PCM.POSTANE2 ---
Anesthesia Postop Eval I Sum Postop Eval Completion status Anesthesia document: Postop Eval 1 completed: Yes Anesthesia Postop Eval I Summary Anesthesia Postop Eval I Summary: Anesthesia Postop Eval I: Assessment Summary Airway patent Yes 05/08/25 09:51 BUFFING MACHINE OPERATOR [email or web address] Spontaneous unlabored Yes 05/08/25 09:51 BUFFING MACHINE OPERATOR SEMIAUTOMATIC.CSIR respirations Mental status nausea No 05/08/25 09:51 BUFFING MACHINE OPERATOR SEMIAUTOMATIC.CSIR Vomiting No 05/08/25 09:51 BUFFING MACHINE OPERATOR [email or web address].CSIR Anesthesia Postop Eval I: Fluid Summary Crystalloid volume administer 500 05/08/25 09:51 BUFFING MACHINE OPERATOR SEMIAUTOMATIC.CSIR (ml) Colloids volume administered ( ml) Blood Product volume administered (ml) Total IV fluid infused 500 05/08/25 09:51 BUFFING MACHINE OPERATOR SEMIAUTOMATIC.CSIR Anesthesia Postop Eval I: Summary Notes Anesthesia Complication No 05/08/25 09:51 BUFFING MACHINE OPERATOR [email or web address].[email or web address] Anesthesia Complication Comment: Post-operative progress note Anesthesia: Postop Eval II Evaluation Mental status: Awake Pain Level: 1 nausea: No Vomiting: No
== END 2025-05-08 11:22 | disposition home or self-care (01) ==
LOC: SDC 08:35 → AC 08:38
PROVIDERS: PCP Family Medicine; Referring Provider Obstetrics & Gynecology; Visit Provider Obstetrics & Gynecology
PROC: 0UDB8ZZ Extraction of Endometrium, Via Natural or Artificial Opening Endoscopic (ICD-10-PCS; CPT 58558; principal; 2025-05-08 11:00)
DX: N87.9 Dysplasia of cervix uteri, unspecified (principal); E78.5 Hyperlipidemia, unspecified; R93.89 Abnormal findings on diagnostic imaging of other specified body structures; Z87.891 Personal history of nicotine dependence; Z79.899 Other long term (current) drug therapy; Z79.82 Long term (current) use of aspirin; Z79.51 Long term (current) use of inhaled steroids
CPT/HCPCS: 58558; 00952; 85027; 88305; J2405